=== PATIENT | female | born 1940 | race Caucasian/White ===

== ENCOUNTER 2017-11-03 12:39 | Emergency (ER) | payer MEDICARE, OTHER ==
[2017-11-03 13:30] LABS: BASOPHILS % (AUTO) 0.6 %; EOSINOPHILS % (AUTO) 0.8 %; HGB - HEMOGLOBIN 13.8 g/dL (12.0-16.0); LYMPHOCYTES # (AUTO) 1.4 10^3/uL (1.5-3.5); LYMPHOCYTES % (AUTO) 27.1 %; MEAN CORPUSCULAR HEMOGLOBIN 30.8 pg (27.0-31.0); MEAN CORPUSCULAR HGB CONC 33.5 g/dL (32.0-36.0); MEAN CORPUSCULAR VOLUME 91.7 fL (81.0-99.0); MEAN PLATELET VOLUME 8.1 fL (7.9-10.8); MONOCYTES # (AUTO) 0.5 10^3/uL (0.0-1.0); MONOCYTES % (AUTO) 8.6 %; NEUTROPHILS # (AUTO) 3.3 10^3/uL (1.5-6.6); NEUTROPHILS % (AUTO) 62.9 %; PLT - PLATELET COUNT 193 10^3/uL (130-450); RED BLOOD COUNT 4.49 10^6/uL (4.20-5.40); RED CELL DISTRIBUTION WIDTH 13.4 % (12.0-15.0); WHITE BLOOD COUNT 5.2 x10^3/uL (4.8-10.8)
[2017-11-03] MEDS ORDERED: LIDOCAINE PATCH 5% TOP PRN (13:36)
[2017-11-03 13:41] LABS: ALBUMIN 3.9 g/dL (3.2-5.5); ALBUMIN/GLOBULIN RATIO 1.1 (1.0-2.2); BILIRUBIN,TOTAL 0.4 mg/dL (0.2-1.0); CALCIUM 9.1 mg/dL (8.5-10.3); CREATININE 0.7 mg/dL (0.4-1.0); TOTAL PROTEIN 7.5 g/dL (6.7-8.2)
--- NOTE | 2017-11-03 14:08 | ED Physician Documentation ---
History of Present Illness - Stated complaint Stated Complaint: LEFT SIDE PX - Chief complaint Chief Complaint: Cardiac - Additonal information Additional information: hx from pt 77 female to ED with left sided chest pain for several weeks there all the time but improved with apap worse with moving palpating and breathing pain is left ant chest under and around L breast no new cough - has a chronic cough no soa no abd pain some RLE discomfort for a month and perhaps a little swelling no travel Review of Systems Constitutional: denies: Fever Cardiac: reports: Chest pain / pressure Respiratory: denies: Dyspnea, Cough (none new) GI: denies: Abdominal Pain, Nausea, Vomiting Musculoskeletal: reports: Extremity pain, Extremity swelling Neurologic: denies: Generalized weakness Endocrine: denies: Easy bruising / bleeding Immunocompromised: denies: Immunocompromised PD PAST MEDICAL HISTORY - Past Medical History Past Medical History: Yes HEENT: Macular degeneration Derm: Other Other Past Medical History: basal cell carcinoma on R latter day - Past Surgical History 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 - Present Medications Home Medications: Ambulatory Orders Medication Instructions Recorded Confirmed Aspirin [Adult Aspirin] 81 mg 11/03/17 Cetirizine [ZyrTEC] 10 mg 11/03/17 Lidocaine Patch 5% [Lidoderm Patch] 1 each TOP DAILY PRN #10 patch 11/03/17 Multivitamin [Multiple Vitamins] 1 11/03/17 raNITIdine [Zantac] 150 mg 11/03/17 - Allergies Allergies/Adverse Reactions: Allergies Allergy/AdvReac Type Severity Reaction Status Date / Time No Known Drug Allergies Allergy Verified 11/03/17 12:55 - Social History Does the pt smoke?: No Smoking Status: Never smoker Does the pt drink ETOH?: Yes Does the pt have substance abuse?: No - Immunizations Immunizations are current?: Yes PD ED PE NORMAL - Vitals Vital signs reviewed: Yes - Neck Neck: Supple, no meningeal sign - Cardiac Cardiac: RRR - Respiratory Respiratory: No respiratory distress, Clear bilaterally, Other (chest wall TTP, no crepitus, no shingles rash) - Abdomen Abdomen: Soft - Derm Derm: Normal color - Extremities Extremities: No edema, Other (mild R calf TTP) - Neuro Neuro: Alert and oriented X 3 - Free text exam Free text exam: L breast s mass or dc Results - Vitals Vitals: Vital Signs - 24 hr 0711/03/17 11/03/17 12:49 13:14 14:11 Temperature 36.3 C L Heart Rate 100 84 65 Respiratory 18 13 12 Rate Blood Pressure 138/75 H 136/77 H 144/67 H O2 Saturation 99 98 99 Oxygen O2 Source Room air - EKG (time done) 1256 Rate: Rate (enter#) (86) Rhythm: NSR [place]: Normal Intervals: Normal [place] Ischemia: Normal ST segments - Labs Labs: Laboratory Tests 11/03/17 11/03/17 11/03/17 13:26 13:26 13:26 WBC 5.2 RBC 4.49 Hgb 13.8 Hct 41.2 MCV 91.7 MCH 30.8 MCHC 33.5 RDW 13.4 Plt Count 193 MPV 8.1 Neut # (Auto) 3.3 Lymph # (Auto) 1.4 L [place] # (Auto) 0.5 Eos # (Auto) 0.0 Baso # (Auto) 0.0 Absolute Nucleated RBC 0.00 Nucleated RBC % 0.0 D-Dimer Sodium 133 L Potassium 3.8 Chloride 99 L Carbon Dioxide 25 Anion Gap 9.0 BUN 25 H Creatinine 0.7 Estimated GFR (MDRD) 82 L Glucose 131 H Calcium 9.1 Total Bilirubin 0.4 AST 23 ALT 19 Alkaline Phosphatase 70 Troponin I < 0.04 Total Protein 7.5 Albumin 3.9 Globulin 3.6 Albumin/Globulin Ratio 1.1 Lipase 46 11/03/17 13:30 WBC RBC Hgb Hct MCV MCH MCHC RDW Plt Count MPV Neut # (Auto) Lymph # (Auto) [place] # (Auto) Eos # (Auto) Baso # (Auto) Absolute Nucleated RBC Nucleated RBC % D-Dimer < 200.0 L Sodium Potassium Chloride Carbon Dioxide Anion Gap BUN Creatinine Estimated GFR (MDRD) Glucose Calcium Total Bilirubin AST ALT Alkaline Phosphatase Troponin I Total Protein Albumin Globulin Albumin/Globulin Ratio Lipase - Rads (name of study) doppler Radiology: See rad report (no DVT) CXR Radiology: See rad report (NACPD) PD MEDICAL DECISION MAKING - Sepsis Event Vital Signs: Vital Signs - 24 hr 11/03/17 11/03/17 11/03/17 12:49 13:14 14:11 Temperature 36.3 C L Heart Rate 100 84 65 Respiratory 18 13 12 Rate Blood Pressure 138/75 H 136/77 H 144/67 H O2 Saturation 99 98 99 Oxygen O2 Source Room air Departure - Departure Disposition: 01 Home, Self Care Clinical Impression: Chest pain Qualifiers: Chest pain type: unspecified Qualified Code(s): R07.9 - Chest pain, unspecified Instructions: ED Chest Pain Atypical Unkn Cause, ED Strain Chest Wall Follow-Up: Chapo Clements MD [Primary Care Provider] - Prescriptions: Lidocaine Patch 5% [Lidoderm Patch] 1 each TOP DAILY PRN #10 patch PRN Reason: Pain Comments: Your tests in the ER are very reassuring The EKG and blood work indicate you have not had a heart attack. The ultrasound and blood work do not show any blood clots. The xrays does not show an aneurysm or tear of your aorta nor a collapsed lung or pneumonia On breast exam I did not feel any masses (but you should still get mammograms to screen for breast cancer) There is no rash to suggest shingles and that would have become apparent over the several weeks you have had symptoms. The exam did not indicate an abdominal problems that would cause referred pain to you chest You do seem tender when I palpate the chest wall - so it is possible to pain is from the the muscles of the chest wall - maybe aggravated by lifting etc I think it is safe for you to go home Recommend tylenol and lidocaine patches as needed for the pain - and try to minimize lifting and twisting for a week. Please follow up with your PMD if not better in a week. And return to the ER if worse or new symptoms develop
--- NOTE | 2017-11-03 14:48 | Ultrasound Report ---
Procedure Date: 11/03/2017 Accession Number: [id number] / [id number] Procedure: US - Duplex Ext Veins Right CPT Code: FULL RESULT: EXAM: RIGHT LOWER EXTREMITY VENOUS ULTRASOUND EXAM DATE: 11/03/2017 02:17 PM. CLINICAL HISTORY: RLE pain and pleuritic CP. COMPARISON: None. TECHNIQUE: Real-time sonographic vascular imaging was performed by the ore crushing dust collector through the lower extremity utilizing both color-flow and Doppler spectral analysis. Multiple floor representative static images were saved for review. FINDINGS: Common Femoral Vein (CFV): Normal. CFV-GSV Junction: Normal. Profunda Femoral Vein (PFV): Normal. Femoral Vein (FV) Prox: Normal. Femoral Vein (FV) Mid: Normal. Femoral Vein (FV) Dist: Normal. Popliteal Vein: Normal. Posterior Tibial Veins: Normal. Peroneal Veins: Normal. Other: None. IMPRESSION: No evidence for deep venous thrombosis. RADIA
--- NOTE | 2017-11-03 14:57 | XRAY Report ---
Procedure Date: 11/03/2017 Accession Number: [id number] / [id number] Procedure: XR - Chest 2 View X-Ray CPT Code: 72281 FULL RESULT: EXAM: CHEST RADIOGRAPHY EXAM DATE: 11/03/2017 02:26 PM. CLINICAL HISTORY: Chest pain. COMPARISON: None available. TECHNIQUE: 2 views. FINDINGS: Lungs/Pleura: No focal opacities evident. No pleural effusion. No pneumothorax. Normal volumes. Mediastinum: Heart and mediastinal contours are unremarkable. Other: None. IMPRESSION: No acute cardiopulmonary abnormality. RADIA
[2017-11-03 15:25] VITALS: BP 138/67
== END 2017-11-03 15:25 | disposition home or self-care (01) ==
LOC: ED 12:39
DX: R07.9 Chest pain, unspecified (principal)
CPT/HCPCS: 36415; 71046; 80053; 83690; 84484; 85025; 85379; 93005; 93971; 99284; A9270

== ENCOUNTER 2020-08-22 15:11 | Outpatient (CLI) | payer MEDICARE, OTHER ==
--- NOTE | 2020-08-22 18:40 | DEXA Report ---
PROCEDURE: Dexa Spine and/or Hip INDICATIONS: OSTEOPOROSIS TECHNIQUE: Dual energy x-ray absorptiometry (DXA) was performed on a [employer]. Regions measur ed are the AP Spine, femoral neck, and if needed forearm. COMPARISON: None. FINDINGS: Lumbar Spine: Bone Mineral Density 0.96 g/cm/cm,T score -2.1, osteopenia Left Femoral Neck: Bone Mineral Density 0.697 g/cm/cm, T score -2.5, osteoporosis (T score greater or equal to -1.0: NORMAL) (T score from -1.1 to -2.4: OSTEOPENIA) (T score less than or equal to -2.5 to: OSTEOPOROSIS) Impression: Osteoporosis. Patient is at high risk for fracture. Patients with diagnosis of osteoporosis or osteopenia should have regular bone mineral density assess ment. For those eligible for Medicare, routine testing is allowed once every 2 years. Testing frequ ency can be increased for patients who have rapidly progressing disease or for those who are receivin g medical therapy to restore bone mass. Reviewed by: Jon Petty MD on 08/22/2020 5:38 PM ANUP Approved by: Jon Petty MD on 08/22/2020 5:38 PM ANUP Station ID: [id number]
== END 2020-08-22 15:12 | disposition home or self-care (01) ==
LOC: DI 15:11
PROVIDERS: ATTEND Physician Assistant Medical
DX: M81.0 Age-related osteoporosis without current pathological fracture (principal)

== ENCOUNTER 2020-11-30 08:00 | Outpatient (CLI) | payer MEDICARE, OTHER ==
[2020-11-30 17:50] LABS: BASOPHILS % (AUTO) 0.6 %; EOSINOPHILS # (AUTO) 0.1 10^3/uL (0.0-0.7); EOSINOPHILS % (AUTO) 1.9 %; HCT - HEMATOCRIT 42.1 % (37.0-47.0); HGB - HEMOGLOBIN 13.5 g/dL (12.0-16.0); LYMPHOCYTES # (AUTO) 1.8 10^3/uL (1.5-3.5); LYMPHOCYTES % (AUTO) 25.7 %; MEAN CORPUSCULAR HEMOGLOBIN 30.5 pg (27.0-31.0); MEAN CORPUSCULAR HGB CONC 32.1 g/dL (32.0-36.0); MEAN PLATELET VOLUME 10.5 fL (7.9-10.8); MONOCYTES # (AUTO) 0.6 10^3/uL (0.0-1.0); MONOCYTES % (AUTO) 8.8 %; NEUTROPHILS # (AUTO) 4.4 10^3/uL (1.5-6.6); NEUTROPHILS % (AUTO) 62.9 %; PLT - PLATELET COUNT 237 10^3/uL (130-450); RED BLOOD COUNT 4.43 10^6/uL (4.20-5.40); RED CELL DISTRIBUTION WIDTH 13.4 % (12.0-15.0)
[2020-11-30 18:23] LABS: ALBUMIN 4.1 g/dL (3.2-5.5); ALBUMIN/GLOBULIN RATIO 1.2 (1.0-2.2); BILIRUBIN,TOTAL 0.5 mg/dL (0.2-1.0); CREATININE 0.5 mg/dL (0.4-1.0); POTASSIUM 4.2 mmol/L (3.5-5.0); TOTAL PROTEIN 7.5 g/dL (6.7-8.2)
== END 2020-11-30 23:59 | disposition home or self-care (01) ==
LOC: LAB.WCP 08:00
PROVIDERS: ATTEND Physician Assistant Medical
DX: K21.9 Gastro-esophageal reflux disease without esophagitis (principal)
CPT/HCPCS: 36415; 80053; 85025

== ENCOUNTER 2020-12-07 13:37 | Outpatient (CLI) | payer MEDICARE, OTHER ==
--- NOTE | 2020-12-07 15:04 | XRAY Report ---
PROCEDURE: Wrist 4 View LT INDICATIONS: L WRIST PX TECHNIQUE: 4 views of the wrist were acquired. COMPARISON: None. FINDINGS: Bones: There is a comminuted intra-articular fracture of the distal radius with impaction and dorsal angulation. A small minimally displaced fracture of the ulnar styloid is also seen. No suspicious bon y lesions. There is stenosis opinion. Scaphoid view: Intact scaphoid. Soft tissues: No suspicious soft tissue calcifications. IMPRESSION: 1. Comminuted, impacted, and mildly angulated intra-articular fracture of the distal radius. 2. Minimally displaced ulnar styloid fracture. Reviewed by: Jayson Hernandez MD on 12/07/2020 3:02 PM PDT Approved by: Jayson Hernandez MD on 12/07/2020 3:02 PM PDT Station ID: [id number]
== END 2020-12-07 23:59 | disposition home or self-care (01) ==
LOC: DI.N 13:37
PROVIDERS: ATTEND Family Medicine
DX: S52.572A Other intraarticular fracture of lower end of left radius, initial encounter for closed fracture (principal)

== ENCOUNTER 2020-12-07 22:35 | Outpatient (CLI) | payer MEDICARE, OTHER | END 2020-12-07 22:36 | disposition critical access hospital (66) | LOC: EMS 22:35 | DX: Z04.3 Encounter for examination and observation following other accident (principal); M79.605 Pain in left leg | CPT/HCPCS: A0425; A0429 ==

== ENCOUNTER 2020-12-07 22:55 | Inpatient (IN) | payer MEDICARE, OTHER ==
--- NOTE | 2020-12-07 22:51 | ED Physician Documentation ---
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 Patient was walking outside of her house tonight when she slipped and fell; she had sudden onset left hip pain when she fell, unable to stand or try to weight-bear due to severe left hip pain with any movement .Denies head injury, denies LOC, denies other pain except left hip radiating to left knee Review of Systems Constitutional: reports: Reviewed and negative Cardiac: reports: Reviewed and negative Respiratory: reports: Reviewed and negative GI: reports: Reviewed and negative Skin: reports: Reviewed and negative Musculoskeletal: reports: Joint pain (left hip), Pain with weight bearing. denies: Neck pain, Back pain Neurologic: reports: Reviewed and negative PD PAST MEDICAL HISTORY - Past Medical History Past Medical History: No - Present Medications Home Medications: Ambulatory Orders Medication Instructions Recorded Confirmed Aspirin [Adult Aspirin] 81 mg DAILY 11/03/17 12/07/20 Cetirizine [ZyrTEC] 10 mg 11/03/17 Multivitamin [Multiple Vitamins] 1 tab DAILY 11/03/17 12/07/20 raNITIdine [Zantac] 150 mg 11/03/17 - Allergies Allergies/Adverse Reactions: Allergies Allergy/AdvReac Type Severity Reaction Status Date / Time No Known Drug Allergies Allergy Verified 12/07/20 22:59 - Living Situation Living Arrangement: reports: At home PD ED PE NORMAL - Vitals Vital signs reviewed: Yes - General General: Alert and oriented X 3, No acute distress (NAD at rest, obvious painful distress with any movement involving LLE), Well developed/nourished - HEENT HEENT: Atraumatic - Neck Neck: Supple, no meningeal sign - Cardiac Cardiac: RRR, No murmur - Respiratory Respiratory: No respiratory distress, Clear bilaterally - Abdomen Abdomen: Soft, Non tender - Derm Derm: Normal color, Warm and dry - Extremities Extremities: No edema - Neuro Neuro: Alert and oriented X 3 PD ED PE EXPANDED - Extremities Extremities: Tenderness (left hip), Limited ROM (left hip), Pedal Pulses Present Results - Vitals Vitals: Vital Signs - 24 hr 12/07/20 12/07/20 22:59 23:15 Temperature 36.5 C Heart Rate 80 78 Respiratory 16 18 Rate Blood Pressure 147/80 H 141/51 H O2 Saturation 98 97 Oxygen O2 Source Room air - Labs Labs: Laboratory Tests 12/07/20 12/07/20 12/07/20 23:09 23:09 23:53 WBC 10.9 H RBC 4.16 L Hgb 12.8 Hct 39.0 MCV 93.8 MCH 30.8 MCHC 32.8 RDW 13.5 Plt Count 198 MPV 10.1 Neut # (Auto) 8.0 H Lymph # (Auto) 1.7 [place] # (Auto) 1.0 Eos # (Auto) 0.1 Baso # (Auto) 0.1 Absolute Nucleated RBC 0.00 Nucleated RBC % 0.0 Sodium 140 Potassium 3.3 L Chloride 104 Carbon Dioxide 25 Anion Gap 11.0 BUN 22 H Creatinine 0.7 Estimated GFR (MDRD) 81 L Glucose 169 H Calcium 9.4 Nasal Adenovirus (PCR) NOT DETECTED Nasal B. parapertussis DNA (PCR) NOT DETECTED Nasal Coronavir 229E PCR NOT DETECTED Nasal Coronavir HKU1 PCR NOT DETECTED Nasal Coronavir NL63 PCR NOT DETECTED Nasal Coronavir OC43 PCR NOT DETECTED Nasal Enterovir/Rhinovir PCR NOT DETECTED Nasal Influenza B PCR NOT DETECTED Nasal Influenza A PCR NOT DETECTED Nasal Parainfluen 1 PCR NOT DETECTED Nasal Parainfluen 2 PCR NOT DETECTED Nasal Parainfluen 3 PCR NOT DETECTED Nasal Parainfluen 4 PCR NOT DETECTED Nasal RSV (PCR) NOT DETECTED Nasal B.pertussis DNA PCR NOT DETECTED Nasal C.pneumoniae (PCR) NOT DETECTED Nate Human Metapneumo PCR NOT DETECTED Nasal M.pneumoniae (PCR) NOT DETECTED Nasal SARS-CoV-2 (PCR) NOT DETECTED - Rads (name of study) left hip with AP pelvis Radiology: Prelim report reviewed, See rad report chest xray Radiology: Prelim report reviewed, See rad report PD MEDICAL DECISION MAKING - ED course Complexity details: reviewed results, re-evaluated patient, considered differential, d/w patient ED course: slip and fall with left hip femoral neck fracture on xray. D/W Dr. Vee, recommends admit to hospitalist service. D/W Dr. Otero for admission to hospitalist service. Departure - Departure Disposition: [address] [facility] DC/Xfer Clinical Impression: Hypokalemia Hip fracture Qualifiers: Encounter type: initial encounter Laterality: left Qualified Code(s): S72.002A - Fracture of unspecified part of neck of left femur, initial encounter for closed fracture Condition: Good Discharge Date/Time: 12/08/20 01:55
[2020-12-07] MEDS ORDERED: SODIUM CHLORIDE 0.9% 1,000 ML IV STA (23:02)
[2020-12-07] MEDS ORDERED: MORPHINE 2 MG/ML CARPUJECT IVP STA (23:02)
[2020-12-07 23:21] LABS: BASOPHILS # (AUTO) 0.1 10^3/uL (0.0-0.1); BASOPHILS % (AUTO) 0.5 %; EOSINOPHILS # (AUTO) 0.1 10^3/uL (0.0-0.7); HGB - HEMOGLOBIN 12.8 g/dL (12.0-16.0); LYMPHOCYTES # (AUTO) 1.7 10^3/uL (1.5-3.5); LYMPHOCYTES % (AUTO) 15.7 %; MEAN CORPUSCULAR HEMOGLOBIN 30.8 pg (27.0-31.0); MEAN CORPUSCULAR HGB CONC 32.8 g/dL (32.0-36.0); MEAN CORPUSCULAR VOLUME 93.8 fL (81.0-99.0); MEAN PLATELET VOLUME 10.1 fL (7.9-10.8); MONOCYTES % (AUTO) 8.7 %; NEUTROPHILS % (AUTO) 73.6 %; PLT - PLATELET COUNT 198 10^3/uL (130-450); RED BLOOD COUNT 4.16 10^6/uL (4.20-5.40); RED CELL DISTRIBUTION WIDTH 13.5 % (12.0-15.0); WHITE BLOOD COUNT 10.9 x10^3/uL (4.8-10.8)
[2020-12-07 23:33] LABS: CALCIUM 9.4 mg/dL (8.5-10.3); CREATININE 0.7 mg/dL (0.4-1.0); POTASSIUM 3.3 mmol/L (3.5-5.0)
[2020-12-08] MEDS ORDERED: MORPHINE 2 MG/ML CARPUJECT IVP STA (00:13)
[2020-12-08] MEDS ORDERED: ONDANSETRON 4 MG/2 ML VIAL IVP PRN ×3 (00:17→16:38)
[2020-12-08] MEDS ORDERED: ACETAMINOPHEN 325 MG TABLET PO PRN (00:17)
[2020-12-08] MEDS ORDERED: SODIUM CHLORIDE FLUSH 0.9% 10 ML SYRINGE IVP PRN ×2 (00:17→16:38)
[2020-12-08] MEDS ORDERED: ONDANSETRON ODT 4 MG TABLET TL PRN (00:17)
[2020-12-08] MEDS ORDERED: POTASSIUM CHLORIDE 20 MEQ TABLET PO STA (00:18)
--- NOTE | 2020-12-08 00:24 | HISTORY & PHYSICAL EXAMINATION ---
Chief Complaint - Chief Complaint Chief Complaint: fall with hip pain History of Present Illness - Admitted From Admitted From:: home - History Obtained From Records Reviewed: [facility] History obtained from: patient and Dr. Brennan Exam Limitations: none - History of Present Illness HPI Comment/Other: This is an independent 80-year-old female who was seen earlier today in the walk-in clinic in [place] because she fell and broke her left wrist. She tripped as she was walking over a pipe. She went home And was instructed to follow-up with orthopedics. In reviewing her medical records, she has been fa lling for several years now. The first recorded fall in the office chart was that of falling straight forward onto outstretched hands and smacking her chin on the ground in 2014. She thinks is because she cannot see well. She still stoutly maintains that her driving is just fine. She chooses not to drive at night. She was taking out the garbage. Fell again between the shed and fence and this time landed on her hip and had immediate pain. Using her right arm, and scooting along her right hip, she managed to get into the house and called EMS. She has not called her children yet or her brother to let them know she is here. She was seen in the emergency room by Dr. Brennan. There is no antecedent history of loss of consciousness, arrhythmia, chest pain, etc. Temperature was 36.5. Heart rate 80. Telemetry was sinus rhythm. Blood pressure 147/80. Respirations 16. 98% on room air. Physical exam was that of a pleasant elderly female, who unfortunately had a left hip fracture. On review of systems there is no antecedent history of A. fib, WI, valvular heart disease. She has not had any angina. She has chronic mild leg edema from varicose veins and that is unchanged. Her cardiovascular endurance has remained unchanged from a mildly sedentary lifestyle for over 2 years now. She has no major medical illnesses other than postmenopausal status, basal cell carcinoma of the face, GERD, allergic rhinitis with a history of balance problems. There has been no recent change in medications. In 2006 she had some vague chest discomfort associated with her allergies. At that time she was getting allergy injections. She had a Julien protocol stress test. Dr. Clements performed the test and she was able to achieve 7 metabolic equivalents. A normal hypertensive response. The emergency room provider, Dr. Brennan, has spoken to Dr. Vee, orthopedics. He is asked the patient to be admitted to our service and he will see the patient in the morning for surgery. History - Past Medical History Cardiovascular: reports: Hypertension (Off and on in the office. No diagnosis of hypertension.), Other (Rheumatic fever, Verrucous veins) Respiratory: reports: None Neuro: reports: Other (Balance issues, getting worse. 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 Cataracts bilateral. 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 Mom at the age of 100, old age. Had history of melanoma. Brothers and 1 sister. Of her 2 brothers 1 has heart disease, but cannot recall what it is. 1 recently went through abrupt steroid withdrawal. Her sister has osteoporosis. She has 2 daughters. Both are considered healthy. No high blood pressure, cancer, diabetes, thyroid disease. Living arrangement: At home Living Situation: Alone Social History Notes: Never smoked. Rarely drinks. Recreational substance abuse. [place]. Left to go to school and got when she was in college. after 3 years. 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 Got a second time and had 2 daughters. 2 stepsons with that marriage. him. 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 Remarried a third time and obtained a third stepson. He was her high school sweetheart. That the only reason she got again. He 3 years ago after a long illness. - Substance History Use: Uses substance without health or social issues: NONE Abuse: Recurrent use of substance despite neg consequences: NONE Dependence: Experiences withdrawal or developed tolerances: NONE - POLST Patient has POLST: No POLST Status: Full Code Meds/Allgy - Home Medications Home Medications: Ambulatory Orders Medication Instructions Recorded Confirmed Aspirin [Adult Aspirin] 81 mg DAILY 11/03/17 12/07/20 Cetirizine [ZyrTEC] 10 mg 11/03/17 Multivitamin [Multiple Vitamins] 1 tab DAILY 11/03/17 12/07/20 raNITIdine [Zantac] 150 mg 11/03/17 - Allergies Allergies/Adverse Reactions: Allergies Allergy/AdvReac Type Severity Reaction Status Date / Time No Known Drug Allergies Allergy Verified 12/07/20 22:59 Review of Systems - Constitutional Constitutional: reports: Other (In July 2019 she was very sick for quite some time. She had just come back from [place] from a dog show. She thinks she may have had Covid back then.). denies: Fatigue, Fever, Chills, Malaise, Weakness, Poor appetite, Diaphoresis - Eyes Eyes: reports: Blurred vision, Field loss, Vision loss, Corrective lenses, Other (She says that the corrective lenses have helped a lot. She thinks she can still drive in spite of the macular degeneration and glaucoma and cataracts.) - Ears, Nose & Throat Ears, Nose & Throat: reports: Nasal congestion, Postnasal drainage, Hoarseness, Other (All from allergic rhinitis.) - Cardiovascular Cariovascular: reports: Edema (Mild, chronic, legs from varicose veins). denies: Irregular heart rate, Palpitations, Chest pain, Lightheadedness, Syncope, Exertional dyspnea, Decr. exercise tolerance - Respiratory Respiratory: reports: Cough (From allergic rhinitis. This last week was bad because she was working in her garden.). denies: Sputum production, Wheezing, Snoring, Hemoptysis, Orthopnea, SOB at rest, SOB with exertion - Gastrointestinal Gastrointestinal: reports: Reflux/heartburn (Over the years getting worse.), Other (She really does not ever want to do a colonoscopy. She has reluctantly agreed to a Cologuard test that was mailed out to her in October. She has not gotten around to doing it. If the Cologuard test is positive she is willing to do a colonoscopy. If the Cologuard test is negative she wont). denies: Abdominal pain, Abdominal distention, Constipation, Diarrhea, Change in bowel habits, Rectal bleeding, Black stools, Bloody stools, Nausea, Vomiting, Coffee grounds emesis, Bloating, Poor appetite - Genitourinary Genitourinary: reports: Frequency, Nocturia. denies: Dysuria, Urgency, Hematuria, Incontinence, Flank pain, Sexual dysfunction - Musculoskeletal Musculoskeletal: reports: Stiffness, Joint pain, Other (She has a lot of stiffness. But right now the main component is agonizing left hip pain when she tries to move.) - Integumentary Integumentary: reports: Rash (A few years ago due to a new cream. That is resolved.), Lesions (To basal cell cancer of her face and head). denies: Pruritis, Dryness, Lumps, Acne, Pigment changes - Neurological Neurological: reports: Memory problems (Mild. Mainly with names.). denies: General weakness, Focal weakness, Headache, Dizziness, Pre-existing deficit, Abnormal gait, Seizures, Incoordination - Psychiatric Psychiatric: denies: Depression, Anxiety, Suicidal, Delusions, Hallucinations - Endocrine Endocrine: denies: Polyuria, Polydypsia, Polyphagia, Intolerance to cold - Hematologic/Lymphatic Hematologic/Lymphatic: denies: Anemia, Bruising, Petechiae, Blood clots Prior Level of Functionality: Independent female. Lives in her own home. Drives. Is able to complete her activities of daily living with regards to self hygiene. Cooks, gardens, cleans house.. Does not use any durable medical equipment. She has 1 daughter in [place], the other daughter around [place] Exam - Vital Signs Reviewed Vital Signs: Yes Vital Signs: Vital Signs x48h Temp Pulse Resp BP Pulse Ox 12/07/20 23:15 78 18 141/51 H 97 12/07/20 22:59 36.5 C 80 16 147/80 H 98 - Physical Exam General Appearance: positive: Alert, Moderate distress (if she moves left hip), Other (5 feet 6 inches female who weighs 65.8 kg. Oriented, normal speech pattern, lucid historian). negative: Lethargic Eyes Bilateral: positive: PERRL, EOMI ENT: positive: Pharynx nml, No signs of dehydration Neck: positive: No JVD Respiratory: positive: No respiratory distress. negative: Wheezes, Rales, Rhonchi Cardiovascular: positive: Regular rate & rhythm, Systolic murmur. negative: Gallop/S4, Friction rub Peripheral Pulses: positive: 1+ Abdomen: positive: Non-tender, No organomegaly, Nml bowel sounds, No distention Back: negative: CVA tenderness (R), CVA tenderness (L) Skin: positive: Warm, Dry Extremities: positive: Full ROM (Except for that left hip. And left wrist.), Pedal edema (Mild around ankles. Varicose veins present.) Neurologic/Psychiatric: positive: Oriented x3, CN's nml (2-12), Motor nml, Sensation nml Conclusion/Plan - Problem List (1) Hip fracture Conclusion/Plan: Due to mechanical fall. Unfortunate is female has a history of falls because of balance issues. She was to do physical therapy to help her with her balance. Unclear what the mechanism of her ataxia is. Nevertheless she has had 2 falls today, 1 resulting in a hip fracture, the other resulting in a wrist fracture. Plan: Inpatient status Consult with orthopedics N.p.o. after 40 mEq of potassium DVT prophylaxis w lovenox to start tomorrow after surgery Qualifiers: Encounter type: initial encounter Fracture type: closed Laterality: left Qualified Code(s): S72.002A - Fracture of unspecified part of neck of left femur, initial encounter for closed fracture (2) Left wrist fracture Conclusion/Plan: She was to follow-up in the outpatient setting with orthopedics. Hopefully he will address the issue while she is here for this hip fracture. In the meantime she is still in a wrist splint. Qualifiers: Encounter type: initial encounter Fracture type: closed Qualified Code(s): S62.102A - Fracture of unspecified carpal bone, left wrist, initial encounter for closed fracture (3) Hypokalemia Conclusion/Plan: supplement tonight w 40 meq and recheck in am (4) Encounter for preoperative assessment Conclusion/Plan: [facility] surgical risk calculator has her at below average risk for serious complication, complications, pneumonia, cardiac complication due to her history. Antecedent review of systems is negative for anything that would contraindicat e her going to surgery tomorrow. Anticipation is that she would be discharged to a prison facility for rehab. However we would assess that with physical therapy. Considering her independent status, relative health, she may be able to go home. Revised cardiac index is calculated at 0 points, class I risk. 3.9% 30-day risk of , WI, or cardiac arrest. (5) Osteoporosis Conclusion/Plan: She has been offered Fosamax and Actonel in the past 10 years. Each time she has not filled her prescription or taken the medication. She does, however, take calcium and vitamin D. Plan: We discussed the use of etidronates and she is willing to do Zometa after this. I think this would be best since it is a one time dose a year AND it would avoid worsening her hx of GERD. Verified use of calcium and vitamin D Qualifiers: Osteoporosis type: age-related Presence of current pathological fracture: with current pathological fracture Encounter type: initial encounter Qualified Code(s): M80.00XA - Age-related osteoporosis with current pathological fracture, unspecified site, initial encounter for fracture (6) Frequent falls Conclusion/Plan: Would suggest outpatient neurological evaluation for her ataxia. she has macular degeneration, cataracts, and glaucoma, and the falls may be a result of visual impairment. - Lab Results Lab results reviewed: Yes Fish Bones: 12/07/20 23:09 12/07/20 23:09 - Diagnostic Imaging Results Diagnostic Imaging Results: positive: Other (No report in EMR. Dr. Brennan has interpreted the films as the left hip fracture and discussed the case with Dr. Vee) - EKG Results EKG Interpreted Independently: No Core Measures - Anticipated LOS I expect patient to be DC'd or transferred within 96 hours.: Yes - DVT/VTE - Prophylaxis VTE/DVT Device ordered at admit?: Yes
[2020-12-08 01:04] LABS: CORONAVIRUS 229E-RESP PCR NOT DETECTED; CORONAVIRUS HKU1-RESP PCR NOT DETECTED; CORONAVIRUS NL63-RESP PCR NOT DETECTED; CORONAVIRUS OC43-RESP PCR NOT DETECTED; HUMAN METAPNEUMOVIRUS NOT DETECTED; INFLUENZA A- RESP PCR PANEL NOT DETECTED; INFLUENZA B - RESP PCR PANEL NOT DETECTED; PARAINFLUENZA VIRUS 1 NOT DETECTED; PARAINFLUENZA VIRUS 2 NOT DETECTED; PARAINFLUENZA VIRUS 3 NOT DETECTED; RHINOVIRUS/ENTEROVIRUS NOT DETECTED; SARS-CoV-2 -RESP PCR PANEL NOT DETECTED
[2020-12-08 01:05] LABS: B. PARAPERTUSSIS- RESP PCR PAN NOT DETECTED; B. PERTUSSIS- RESP PCR PANEL NOT DETECTED; C. PNEUMONIAE- RESP PCR PANEL NOT DETECTED; M. PNEUMONIAE- RESP PCR PANEL NOT DETECTED; PARAINFLUENZA VIRUS 4 NOT DETECTED; RSV- RESP PCR PANEL NOT DETECTED
[2020-12-08] MEDS: SODIUM CHLORIDE FLUSH 0.9% 10 ML SYRINGE IVP SCH ×3 (02:06→18:01)
--- NOTE | 2020-12-08 02:11 | ADVANCE CARE PLANNING NOTE ---
Advance Care Planning - Planning Encounter Date: 12/08/20 Time: 01:00 Purpose: establish code status Parties in Attendance: hospitalist and patient Decisional Capacity of the Patient: intact. She is alert, oriented, lucid and endorses living alone and still driving, paying bills, and makes her own decisions. - Diagnosis for Encounter (1) Hip fracture Qualifiers: Encounter type: initial encounter Laterality: left Qualified Code(s): S72.002A - Fracture of unspecified part of neck of left femur, initial encounter for closed fracture Summary: History of fall since 2014. She thinks is because of her vision. She is just not paying attention to where her feet are and depth perception is affected. She also gets very focused on activities at hand and does not pay attention to what she is doing. She denies dizziness, loss of consciousness. This is resulted in a hip fracture today. - Encounter Subjective/Patient's Story: [place] Has had 3 marriages. Her last marriage ended 3 years ago when her high school sweetheart of a long illness. She took care of him for many years before he . She regards her self is healthy, independent. Still drives a car, pays her own bills. Does not use any durable medical equipment. She started falling a few years ago. She thinks that it is because she is just not paying attention to where she puts her feet, and her vision is impaired. She denies severe memory loss, gait ataxia, loss of consciousness. She denies any history of arrhythmias. [place] And she loves living in her own home. She would like to live in her own home for as long as possible. She recognizes that as she gets older she may need more help. 1 daughter lives in [place] and 1 daughter lives in [place]. Both daughters of stated that they will take her in and have her live with them. Her plan is to sell her home, and use a usp fund plus the sale of the home finds to then help pay for her care in her daughter's home. She does not have any specific goals with regards to living a certain amount of time. Because both parents were very elderly when she she assumes she will be elderly as well. Since this is her first episode of severe illness resulting in hospitalization, she would like to be a full code. Objective/Medical Story: This is an independent 80-year-old female who was seen earlier today in the walk-in clinic in [place] because she fell and broke her left wrist. She tripped as she was walking over a pipe. She went home And was instructed to follow-up with orthopedics. In reviewing her medical records, she has been falling for several years now. The first recorded fall in the office chart was that of falling straight forward onto outstretched hands and smacking her chin on the ground in 2014. She thinks is because she cannot see well. She still stoutly maintains that her driving is just fine. She chooses not to drive at night. She was taking out the garbage. Fell again between the shed and fence and this time landed on her hip and had immediate pain. Using her right arm, and scooting along her right hip, she managed to get into the house and called EMS. She has not called her children yet or her brother to let them know she is here. She was seen in the emergency room by Dr. Brennan. There is no antecedent history of loss of consciousness, arrhythmia, chest pain, etc. Temperature was 36.5. Heart rate 80. Telemetry was sinus rhythm. Blood pressure 147/80. Respirations 16. 98% on room air. Physical exam was that of a pleasant elderly female, who unfortunately had a left hip fracture. On review of systems there is no antecedent history of A. fib, DE, valvular heart disease. She has not had any angina. She has chronic mild leg edema from varicose veins and that is unchanged. Her cardiovascular endurance has remained unchanged from a mildly sedentary lifestyle for over 2 years now. She has no major medical illnesses other than postmenopausal status, basal cell carcinoma of the face, GERD, allergic rhinitis with a history of balance problems. There has been no recent change in medications. In 2006 she had some vague chest discomfort associated with her allergies. At that time she was getting allergy injections. She had a Julien protocol stress test. Dr. Clements performed the test and she was able to achieve 7 metabolic equivalents. A normal hypertensive response. The emergency room provider, Dr. Brennan, has spoken to Dr. Vee, orthopedics. He is asked the patient to be admitted to our service and he will see the patient in the morning for surgery. - Past Medical History Cardiovascular: reports: Hypertension (Off and on in the office. No diagnosis of hypertension.), Other (Rheumatic fever, Verrucous veins) Respiratory: reports: None Neuro: reports: Other (Balance issues, getting worse. 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 Cataracts bilateral. 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 Revised cardiac index has or is class I. Plan is for her to undergo surgery tomorrow morning with discharge on postoperative day #3. Goals of Care: 1. To successfully navigate this acute episode of care with hip surgery. Her hope is to return to her home with physical therapy as opposed to custodial facility. However, if she has to go to a custodial facility she is choosing [facility]. 2. To treat her osteoporosis in the outpatient setting to hopefully reduce her risk of fracture. She will discuss this with her primary care provider. 3. To remain in her own home for as long as possible until she can no longer take care of her self. 4. She plans on doing her Cologuard testing when she is done with the hip surgery. And that will determine her future with regards to colonoscopy Plan: She has identified, one of her daughters, as her delicate and/power of trademark attorney her number is [phone]. We have called Maria Luz and left a voicemail to let her know that mom is in the hospital. We will await decision of physical therapy and orthopedic surgery on postop day 3 to let us make a decision about discharge to home or [facility]. Code Status: Attempt Resuscitation Time spent on advance care plannin minutes
[2020-12-08] MEDS: oxyCODONE 5 MG TABLET PO PRN (02:12)
[2020-12-08] MEDS: MORPHINE 2 MG/ML CARPUJECT IVP PRN ×3 (03:00→08:38)
[2020-12-08 05:25] LABS: BASOPHILS % (AUTO) 0.3 %; EOSINOPHILS % (AUTO) 0.1 %; HCT - HEMATOCRIT 38.5 % (37.0-47.0); HGB - HEMOGLOBIN 12.6 g/dL (12.0-16.0); LYMPHOCYTES % (AUTO) 7.1 %; MEAN CORPUSCULAR HEMOGLOBIN 30.6 pg (27.0-31.0); MEAN CORPUSCULAR HGB CONC 32.7 g/dL (32.0-36.0); MEAN CORPUSCULAR VOLUME 93.4 fL (81.0-99.0); MEAN PLATELET VOLUME 9.9 fL (7.9-10.8); MONOCYTES # (AUTO) 1.1 10^3/uL (0.0-1.0); NEUTROPHILS # (AUTO) 11.5 10^3/uL (1.5-6.6); NEUTROPHILS % (AUTO) 84.2 %; PLT - PLATELET COUNT 180 10^3/uL (130-450); RED BLOOD COUNT 4.12 10^6/uL (4.20-5.40); RED CELL DISTRIBUTION WIDTH 13.4 % (12.0-15.0); WHITE BLOOD COUNT 13.6 x10^3/uL (4.8-10.8)
[2020-12-08 05:34] LABS: CALCIUM 8.9 mg/dL (8.5-10.3); CREATININE 0.6 mg/dL (0.4-1.0); POTASSIUM 4.1 mmol/L (3.5-5.0)
--- NOTE | 2020-12-08 08:15 | XRAY Report ---
PROCEDURE: Hip w/Pelvis 2-3V LT INDICATIONS: Trauma, fall, left hip pain TECHNIQUE: AP pelvis with lateral view(s) of the bilateral hip(s). COMPARISON: None. FINDINGS: There is a displaced and angulated fracture of the left femoral neck. Remaining pelvic osseous struct ures appear intact. IMPRESSION: Displaced and angulated fracture of the left femoral neck. Reviewed by: Butch Reddy MD on 12/08/2020 8:14 AM PDT Approved by: Butch Reddy MD on 12/08/2020 8:14 AM PDT Station ID: [id number]
--- NOTE | 2020-12-08 08:16 | XRAY Report ---
PROCEDURE: Chest 1 View X-Ray INDICATIONS: Hip fracture TECHNIQUE: One view of the chest was acquired. COMPARISON: 11/03/2017 chest radiographs FINDINGS: Surgical changes and devices: None. Lungs and pleura: No pleural effusions or pneumothorax. Lungs are clear. Mediastinum: Mediastinal contours appear normal. Heart size is normal. Bones and chest wall: No suspicious bony lesions. Overlying soft tissues appear unremarkable. IMPRESSION: No acute cardiopulmonary process demonstrated radiographically. Reviewed by: Butch Reddy MD on 12/08/2020 8:14 AM PDT Approved by: Butch Reddy MD on 12/08/2020 8:14 AM PDT Station ID: [id number]
--- NOTE | 2020-12-08 09:00 | PHARMACY PROGRESS NOTE ---
- Best Possible Medication History Admit Date and Time: 12/08/20 0017 Processed by: Nursing Medication History completed: Yes Patient Interview: Completed (MED REC COMPLETED BY NURSING) As the person ultimately responsible for medication therapy, providers are able to order a medication from an existing home medication list in [facility] via the "Reconcile Routine" prior to Confirmation of that medication by coding support specialist. Such practice is discouraged except when the physician, in their clinical judgment, deems that a medical need exists for a medication without regard to previous use.
[2020-12-08] MEDS ORDERED: ROPIVACAINE 0.5% PF 20 ML AMPULE ONE ×2 (10:02→16:06)
[2020-12-08] MEDS ORDERED: DEXAMETHASONE 10 MG/ML VIAL ONE (10:04)
--- NOTE | 2020-12-08 10:11 | CT Report ---
PROCEDURE: LOWER EXTREMITY WO - LT INDICATIONS: hip fracture, left hip TECHNIQUE: Noncontrast 3 mm axial sections acquired of the pelvis, with coronal and sagittal reformats. COMPARISON: Plain films dated 12/07/2020 FINDINGS: Image quality: Excellent. Bones: As seen by plain film, there is a moderately displaced subcapital left femoral neck fracture which demonstrates moderate angulation and impaction. Soft tissues: Grossly unremarkable. Kelley catheter is present. IMPRESSION: No significant change in left subcapital femoral neck fracture compared to plain films dated 12/07/2020 . Reviewed by: Jovon Judd MD on 12/08/2020 10:10 AM PDT Approved by: Jovon Judd MD on 12/08/2020 10:10 AM PDT Station ID: [id number]
--- NOTE | 2020-12-08 11:28 | ANESTHESIA ---
Pre-Anesthesia VS, & Labs - Diagnosis Left hip fracture and left wrist fracture - Procedure Left hip hemiarthroplasty and Left wrist fracture pinning Vital Signs: Temp Pulse Resp BP Pulse Ox 98.7 C H 90 18 141/81 H 94 12/08/20 08:30 12/08/20 08:30 12/08/20 08:30 12/08/20 08:30 12/08/20 08:30 Height: 5 ft 5 in Weight (kg): 63.5 kg Body Mass Index: 23.3 BMI Classification: Healthy weight - NPO >8 hours - Is Patient ?: No - Lab Results Current Lab Results: Laboratory Tests 12/08/20 05:18: Sodium 137, Potassium 4.1, Chloride 104, Carbon Dioxide 24, Anion Gap 9.0, BUN 18, Creatinine 0.6, Estimated GFR (MDRD) 97, Glucose 139 H, Calcium 8.9 12/08/20 05:18: WBC 13.6 H, RBC 4.12 L, Hgb 12.6, Hct 38.5, MCV 93.4, MCH 30.6, MCHC 32.7, RDW 13.4, Plt Count 180, MPV 9.9, Neut # (Auto) 11.5 H, Lymph # (Auto) 1.0 L, [place] # (Auto) 1.1 H, Eos # (Auto) 0.0, Baso # (Auto) 0.0, Absolute Nucleated RBC 0.00, Nucleated RBC % 0.0 12/07/20 23:09: Sodium 140, Potassium 3.3 L, Chloride 104, Carbon Dioxide 25, Anion Gap 11.0, BUN 22 H, Creatinine 0.7, Estimated GFR (MDRD) 81 L, Glucose 169 H, Calcium 9.4 12/07/20 23:09: WBC 10.9 H, RBC 4.16 L, Hgb 12.8, Hct 39.0, MCV 93.8, MCH 30.8, MCHC 32.8, RDW 13.5, Plt Count 198, MPV 10.1, Neut # (Auto) 8.0 H, Lymph # (Auto) 1.7, Ceiba # (Auto) 1.0, Eos # (Auto) 0.1, Baso # (Auto) 0.1, Absolute Nucleated RBC 0.00, Nucleated RBC % 0.0 Lab results reviewed: Yes Fish Bones: 12/08/20 05:18 12/08/20 05:18 Home Medications and Allergies Active Medications Acetaminophen (Acetaminophen 325 Mg Tablet) 650 mg PO Q4HR PRN PRN Reason: Pain 1 to 4 Last Admin: 12/08/20 02:12 Dose: 650 mg Documented by: Enoxaparin Sodium (Enoxaparin 40 Mg/0.4 Ml Syringe) 40 mg SUBQ DAILY [facility] Morphine Sulfate (Morphine 2 Mg/Ml Carpuject) 2 mg IVP Q2HR PRN PRN Reason: PAIN Last Admin: 12/08/20 08:38 Dose: 2 mg Documented by: Ondansetron HCl (Ondansetron Odt 4 Mg Tablet) 4 mg TL Q6HR PRN PRN Reason: Nausea / Vomiting Ondansetron HCl (Ondansetron 4 Mg/2 Ml Vial) 4 mg IVP Q6HR PRN PRN Reason: Nausea / Vomiting Oxycodone HCl (Oxycodone 5 Mg Tablet) 5 mg PO Q4HR PRN PRN Reason: Pain 5 to 7 Last Admin: 12/08/20 02:12 Dose: 5 mg Documented by: Sodium Chloride (Sodium Chloride Flush 0.9% 10 Ml Syringe) 10 ml IVP PRN PRN PRN Reason: NEEDED PER PROVIDER ORDERS Sodium Chloride (Sodium Chloride Flush 0.9% 10 Ml Syringe) 10 ml IVP 0100,0900,1700 [facility] Last Admin: 12/08/20 08:38 Dose: 10 ml Documented by: Aspirin [Adult Aspirin] 81 mg DAILY 11/03/17 Multivitamin [Multiple Vitamins] 1 tab DAILY 11/03/17 Allergies/Adverse Reactions: Allergies Allergy/AdvReac Type Severity Reaction Status Date / Time No Known Drug Allergies Allergy Verified 12/07/20 22:59 Anes History & Medical History - Anesthetic History Anesthesia Complications: reports: No previous complications - Medical History Cardiovascular: reports: Hypertension, Other Pulmonary: reports: None Gastrointestinal: reports: GERD Urinary: reports: None Neuro: reports: Other Musculoskeletal: reports: Osteoarthritis, Osteoporosis, Other Endocrine/Autoimmune: reports: None Skin: reports: Other Smoking Status: Never smoker Psychosocial: reports: No issues indicated History of Cancer?: Yes - Surgical History General: reports: Appendectomy Gynecologic: reports: Hysterectomy, Oophrectomy Dermatologic: reports: Skin cancer surgery Exam General: Alert, Oriented x3, Cooperative, No acute distress Dental: WNL Mouth Openin Fingerbreadth Neck Mobility: Normal Mallampati classification: II Thyromental Distance: 4-6 cm Respiratory: Lungs clear, Normal breath sounds, No respiratory distress, No accessory muscle use Cardiovascular: Regular rate, Normal S1, Normal S2, No murmurs Mental/Cognitive Status: Alert/Oriented X3, Normal for patient Plan Anesthesia Type: Spinal, Supraclavicular Block (left), Fascia Iliaca Block (left) Regional Block: Per Surgeon's request for Post Op pain control Consent for Procedure(s) Verified and Reviewed: Yes Code Status: Attempt Resuscitation ASA classification: 2-Mild systemic disease Is this case an emergency?: No
--- NOTE | 2020-12-08 12:21 | HISTORY & PHYSICAL EXAMINATION ---
HPI - History Obtained From History obtained from: Patient Exam limitations: Clinical condition - History of Present Illness HPI Comment/Other: This is a relatively healthy 80-year-old woman with a history of falls. She sustained 2 falls yesterday 1 in the morning and 1 in the evening. She sustained a left wrist fracture earlier in the day and a left hip fracture in the evening. Both falls were associated with a trip outdoors. These falls were from a standing position. She had pain and inability to bear weight on left leg. Pain is about the left hip and upper thigh. She also has localized pain to left wrist without neurologic symptoms. She denies previous problems with left hip or left wrist. She does have some difficulty with eyesight. She denies chest pain, shortness of breath, dizziness or loss of consciousness associated with falls. She was seen in the emergency room and admitted to the hospital service for comanage care, medical and orthopedic. She seems to be doing relatively well at the present time. Her left wrist has been immobilized in a long-arm splint PMH/PSH - Past Medical History Cardiovascular: positive: Hypertension, Other Respiratory: positive: None Neuro: positive: Other Endocrine/Autoimmune: positive: None GI: positive: GERD ADHESIVE PRIMER: positive: Other () : positive: None HEENT: positive: Glaucoma, Macular degeneration, Other (chronic allergic rhinitis, Epiretinal membrane right eye. Cataracts bilateral. ) Psych: positive: None Musculoskeletal: positive: Osteoarthritis, Osteoporosis, Other Derm: positive: Other MRSA Hx?: No - Past Surgical History General: positive: Appendectomy /ADHESIVE PRIMER: positive: Hysterectomy, Oophrectomy Derm: positive: Skin cancer surgery Social & Family Hx - Social History Does the pt smoke?: No Smoking Status: Never smoker Does the pt drink ETOH?: Yes Does the pt have substance abuse?: No - POLST Patient has POLST: No POLST Status: Full Code Meds/Allgy - Home Medications Home Medications: Ambulatory Orders Medication Instructions Recorded Confirmed Aspirin [Adult Aspirin] 81 mg DAILY 11/03/17 12/07/20 Multivitamin [Multiple Vitamins] 1 tab DAILY 11/03/17 12/07/20 - Allergies Allergies/Adverse Reactions: Allergies Allergy/AdvReac Type Severity Reaction Status Date / Time No Known Drug Allergies Allergy Verified 12/07/20 22:59 Exam - Vital Signs Vital Signs: Vital Signs x48h Temp Pulse Resp BP Pulse Ox 12/08/20 08:30 98.7 C H 90 18 141/81 H 94 - Physical Exam General Appearance: positive: No acute distress Neck: positive: Nml inspection Respiratory: positive: Chest non-tender, No respiratory distress Cardiovascular: positive: Regular rate & rhythm Peripheral Pulses: positive: 2+ Abdomen: positive: Non-tender Skin: positive: Color nml, Warm, Dry Neurologic/Psychiatric: negative: Oriented x3 (Left leg is shortened and externally rotated, pain with passive motion left hip. Left knee is nontender, no swelling about left knee. There is no sign of hematoma about left hip. Skin is intact. She has tenderness to the left distal radius and ulna with swelling. Color, motion sensation intac) Results - Lab Results Fish Bones: 12/08/20 05:18 12/08/20 05:18 Other Lab Results: Lab Results x24hrs 12/08/20 12/08/20 12/07/20 Range/Units 05:18 05:18 23:53 WBC 13.6 H (4.8-10.8) x10^3/uL RBC 4.12 L (4.20-5.40) 10^6/uL Hgb 12.6 (12.0-16.0) g/dL Hct 38.5 (37.0-47.0) % MCV 93.4 (81.0-99.0) fL MCH 30.6 (27.0-31.0) pg MCHC 32.7 (32.0-36.0) g/dL RDW 13.4 (12.0-15.0) % Plt Count 180 (130-450) 10^3/uL MPV 9.9 (7.9-10.8) fL Neut # (Auto) 11.5 H (1.5-6.6) 10^3/uL Lymph # (Auto) 1.0 L (1.5-3.5) 10^3/uL [place] # (Auto) 1.1 H (0.0-1.0) 10^3/uL Eos # (Auto) 0.0 (0.0-0.7) 10^3/uL Baso # (Auto) 0.0 (0.0-0.1) 10^3/uL Absolute Nucleated RBC 0.00 x10^3/uL Nucleated RBC % 0.0 /100WBC Sodium 137 (135-145) mmol/L Potassium 4.1 (3.5-5.0) mmol/L Chloride 104 (101-111) mmol/L Carbon Dioxide 24 (21-32) mmol/L Anion Gap 9.0 (6-13) BUN 18 (6-20) mg/dL Creatinine 0.6 (0.4-1.0) mg/dL Estimated GFR (MDRD) 97 (>89) Glucose 139 H (70-100) mg/dL Calcium 8.9 (8.5-10.3) mg/dL Nasal Adenovirus (PCR) NOT DETECTED Nasal B. parapertussis DNA (PCR) NOT DETECTED Nasal Coronavir 229E PCR NOT DETECTED Nasal Coronavir HKU1 PCR NOT DETECTED Nasal Coronavir NL63 PCR NOT DETECTED Nasal Coronavir OC43 PCR NOT DETECTED Nasal Enterovir/Rhinovir PCR NOT DETECTED Nasal Influenza B PCR NOT DETECTED Nasal Influenza A PCR NOT DETECTED Nasal Parainfluen 1 PCR NOT DETECTED Nasal Parainfluen 2 PCR NOT DETECTED Nasal Parainfluen 3 PCR NOT DETECTED Nasal Parainfluen 4 PCR NOT DETECTED Nasal RSV (PCR) NOT DETECTED Nasal B.pertussis DNA PCR NOT DETECTED Nasal C.pneumoniae (PCR) NOT DETECTED Nate Human Metapneumo PCR NOT DETECTED Nasal M.pneumoniae (PCR) NOT DETECTED Nasal SARS-CoV-2 (PCR) NOT DETECTED 12/07/20 12/07/20 Range/Units 23:09 23:09 WBC 10.9 H (4.8-10.8) x10^3/uL RBC 4.16 L (4.20-5.40) 10^6/uL Hgb 12.8 (12.0-16.0) g/dL Hct 39.0 (37.0-47.0) % MCV 93.8 (81.0-99.0) fL MCH 30.8 (27.0-31.0) pg MCHC 32.8 (32.0-36.0) g/dL RDW 13.5 (12.0-15.0) % Plt Count 198 (130-450) 10^3/uL MPV 10.1 (7.9-10.8) fL Neut # (Auto) 8.0 H (1.5-6.6) 10^3/uL Lymph # (Auto) 1.7 (1.5-3.5) 10^3/uL [place] # (Auto) 1.0 (0.0-1.0) 10^3/uL Eos # (Auto) 0.1 (0.0-0.7) 10^3/uL Baso # (Auto) 0.1 (0.0-0.1) 10^3/uL Absolute Nucleated RBC 0.00 x10^3/uL Nucleated RBC % 0.0 /100WBC Sodium 140 (135-145) mmol/L Potassium 3.3 L (3.5-5.0) mmol/L Chloride 104 (101-111) mmol/L Carbon Dioxide 25 (21-32) mmol/L Anion Gap 11.0 (6-13) BUN 22 H (6-20) mg/dL Creatinine 0.7 (0.4-1.0) mg/dL Estimated GFR (MDRD) 81 L (>89) Glucose 169 H (70-100) mg/dL Calcium 9.4 (8.5-10.3) mg/dL Nasal Adenovirus (PCR) Nasal B. parapertussis DNA (PCR) Nasal Coronavir 229E PCR Nasal Coronavir HKU1 PCR Nasal Coronavir NL63 PCR Nasal Coronavir OC43 PCR Nasal Enterovir/Rhinovir PCR Nasal Influenza B PCR Nasal Influenza A PCR Nasal Parainfluen 1 PCR Nasal Parainfluen 2 PCR Nasal Parainfluen 3 PCR Nasal Parainfluen 4 PCR Nasal RSV (PCR) Nasal B.pertussis DNA PCR Nasal C.pneumoniae (PCR) Nate Human Metapneumo PCR Nasal M.pneumoniae (PCR) Nasal SARS-CoV-2 (PCR) - Diagnostic Imaging Results Diagnostic Imaging Results: negative: Read independently (X-rays with displaced fracture left distal radius, comminuted; displaced femoral neck fracture left hip seen on routine x-rays and better documented on CT scan) Impression/Plan - Problem List Problem List: 1 displaced femoral neck fracture left hip Plan is a left hip hemiarthroplasty. I discussed the risk, goals and likelihood achieving goals, alternatives to surgery, disability and rarely . She seems to have understanding the procedure. I have encouraged questions. 2. Displaced fracture left distal radius and ulnar styloid Plan closed reduction percutaneous pinning left distal radius. Discussed the risks, goals and likelihood achieving goals, alternatives to surgery, disability and rarely . Both procedures can be done under the sa me anesthetic setting. Patient is agreement to both procedures has signed informed consent. She has had preoperative medical evaluations, no contraindication to surgery.
[2020-12-08] MEDS ORDERED: PROPOFOL 200 MG/20 ML VIAL IVP ONE ×2 (12:22→16:01)
[2020-12-08] MEDS ORDERED: KETAMINE 500 MG/10 ML VIAL ONE (12:23)
[2020-12-08] MEDS ORDERED: fentaNYL 100 MCG/2 ML VIAL ONE (12:23)
[2020-12-08] MEDS ORDERED: SODIUM CHLORIDE 0.9% 10 ML VIAL IVP ONE (12:26)
[2020-12-08] MEDS ORDERED: ENOXAPARIN 40 MG/0.4 ML SYRINGE SUBQ SCH (14:00)
[2020-12-08] MEDS ORDERED: MORPHINE 2 MG/ML CARPUJECT IVP PRN (14:21)
[2020-12-08] MEDS ORDERED: NALOXONE 0.4 MG/ML VIAL IVP PRN (14:21)
[2020-12-08] MEDS ORDERED: HYDROmorphone 0.5 MG/0.5 ML SYRINGE IVP PRN (14:21)
[2020-12-08] MEDS ORDERED: fentaNYL 100 MCG/2 ML VIAL IVP PRN (14:21)
[2020-12-08] MEDS ORDERED: ATROPINE ABBOJECT 1 MG/10 ML SYRINGE IVP PRN (14:21)
[2020-12-08] MEDS ORDERED: ceFAZolin 1 GM VIAL ONE (14:27)
[2020-12-08] MEDS ORDERED: TRANEXAMIC ACID 1,000 MG/10 ML VIAL ONE (14:43)
[2020-12-08] MEDS ORDERED: LACTATED RINGERS 1,000 ML IV SCH (15:00)
[2020-12-08] MEDS ORDERED: ACETAMINOPHEN 1,000 MG/100 ML 100 ML IV PRN (16:38)
[2020-12-08] MEDS ORDERED: oxyCODONE 5 MG TABLET PO PRN (16:38)
[2020-12-08] MEDS ORDERED: HYDROmorphone 1 MG/ML CARPUJECT IVP PRN (16:38)
[2020-12-08] MEDS ORDERED: PROCHLORPERAZINE 10 MG/2 ML VIAL IVP PRN (16:38)
--- NOTE | 2020-12-08 16:38 | OPERATIVE REPORT ---
Operative Report - General Admit Date: 12/08/20 Procedure Date: 12/08/20 Planned Procedure: Left hip hemiarthroplasty Closed reduction percutaneous pinning left distal radius Pre-Op Diagnosis: Displaced femoral neck fracture left hip; displaced left distal radius [facility] Procedure Performed: Left hip hemiarthroplasty: [employer] #13 femoral component with 45 mm unipolar femoral head, high offset, +0 femoral neck Closed reduction left distal radius, percutaneous pinning with 0.062 inch K wires, application of short arm fiberglass splint Post Op Diagnosis: Same as preoperative diagnosis - Procedure Note Primary Surgeon: Chuckie Vee MD Secondary Surgeon: Steve OLIVAS Anesthesia Provider: Evelyn Grant CRNA Anesthesia Technique: Regional block, Spinal Estimated Blood Loss (mL): 100 Indications: This is a relatively healthy 80-year-old woman who sustained 2 falls yesterday, both him standing height, mechanical falls without history of preceding syncope, dizziness or chest pain. The first falls earlier in the day and was associated with a left wrist fracture the second fall occurred in the evening, injuring left hip, inability to bear weight left leg, brought to emergency room, admitted and had preoperative medical evaluation by her hospitalist. She had pain and deformity to both left wrist and left hip. X-rays and CT scan of left hip show displaced femoral neck fracture. X-rays of the left distal radius show displaced comminuted extra-articular and intra-articular fracture left distal radius with ulnar styloid fracture Findings: Displaced femoral neck fracture left hip with intact articular cartilage to acetabulum; displaced, comminuted left distal radius with ulnar styloid fracture, osteopenia 2 view Complications: None - Other Other Information/Narrative: After satisfactory spinal anesthesia had been achieved, the patient was placed in a lateral decubitus position and was secured in this position with the pegboard, 4 peg supporting the torso and pelvis. Left hip was facing superiorly. Left hip and lower extremity prepped and draped in sterile manner in the usual fashion. Timeout procedure was performed by the entire surgical team and all were in agreement. A physician printing bindery assistant was utilized for both procedures, felt to be medically necessary to provide exposure, protection of vital structures, facilitate reduction and wound closure. A longitudinal incision was made over the lateral aspect the left hip beginning above and extending below the greater trochanter. The skin, subcutaneous tissue and fascia jl were split in line with the incision. The anterior third of the gluteus medius and minimus were released. The left hip capsule was exposed in a T-shaped fashion. A femoral head was identified, removed with a corkscrew. The size of the femoral head was measured with calipers, 45 mm in diameter. The femoral canal was opened with a box osteotome, reamer and lateral offset reamer. Broaching was carried out to a #13 which was found to be stable. Trial reduction was performed. Permanent prosthesis was inserted, noncemented #13 high offset femoral component, 45 mm unipolar ball with +0 head. A good reduction was achieved, good range of motion, good leg length tension, no sign of instability. Wound was irrigated with dilute Betadine. Saline lavage was then performed. The hip abductors were repaired with #1 strata fix suture, myotendinous junction. The fascia jl was closed with oh strata fix suture, subcutaneous tissue 2 oh strata fix suture, subcuticular closure with 3 oh strata fix suture, Dermabond, silver impregnated dressing The patient was then repositioned on the operating room table in supine position with the left arm over arm extension table. Left upper extremity was prepped and draped in sterile manner in the usual fashion. A timeout procedure was performed by the entire operating room team and all were in agreement. The C- arm image intensifier was draped. Fingertrap traction was performed over a bump providing tractionWith some palmar flexion and ulnar deviation. Direct manipulation at the fracture site was also performed dorsally. 4 K wires were inserted, 3 from the radial side and 1 from the ulnar side beginning distally and placing them in more proximal position. The fracture appeared to be stable, satisfactory alignment. The K wires cut external to skin, capital sterile ball, pin gauze dressing, short arm well-padded volar fiberglass splint. She received 2 g of Ancef prior to the hip incision and a gram of tranxemic acid.
[2020-12-08] MEDS ORDERED: LACTATED RINGERS 1,000 ML IV ONE (16:48)
[2020-12-08] MEDS ORDERED: SODIUM CHLORIDE FLUSH 0.9% 10 ML SYRINGE IVP SCH (17:00)
--- NOTE | 2020-12-08 18:26 | ANESTHESIA POST OP EVALUATION ---
Anesthesia Post Eval - Post Anesthesia Eval Vitals: Last Vital Signs Temp 36.3 C L 12/08/20 18:00 Pulse 91 12/08/20 18:00 Resp 16 12/08/20 18:00 BP 133/71 H 12/08/20 18:00 Pulse Ox 95 12/08/20 18:00 CV Function Including HR & BP: Stable Pain Control: Satisfactory Nausea & Vomiting: Negative Mental Status: Baseline Respiratory Status: Airway Patent Hydration Status: Satisfactory Anesthesia Complications: None
--- NOTE | 2020-12-08 19:56 | XRAY Report ---
PROCEDURE: Hip w/Pelvis 1V LT INDICATIONS: Postop 2 view TECHNIQUE: AP pelvis with lateral view(s) of the unilateral left hip(s). COMPARISON: CT left hip region same day reviewed.. FINDINGS: Bones: There has been interval placement of a total left hip arthroplasty, with normal alignment esta blished, resulting femoral neck fracture on the left.. Soft tissues: The visualized bowel gas pattern is normal. No suspicious soft tissue calcifications. IMPRESSION: Normal alignment after left total hip arthroplasty in this patient with documented femor al neck fracture earlier same-day by CT scanning. Excellent alignment established. Reviewed by: Fermin Velasco MD on 12/08/2020 7:55 PM PDT Approved by: Fermin Velasco MD on 12/08/2020 7:55 PM PDT Station ID: [id number]
[2020-12-08] MEDS: ACETAMINOPHEN 325 MG TABLET PO PRN (20:04)
[2020-12-08] MEDS: ASPIRIN EC 81 MG TABLET PO SCH (21:04)
[2020-12-08] MEDS: ceFAZolin 2 GM/50 ML 2 GM/50 ML BAG IV SCH (21:04)
[2020-12-09] MEDS: ACETAMINOPHEN 325 MG TABLET PO PRN ×2 (00:10→05:20)
[2020-12-09] MEDS: oxyCODONE 5 MG TABLET PO PRN ×4 (00:11→20:06)
[2020-12-09] MEDS: SODIUM CHLORIDE FLUSH 0.9% 10 ML SYRINGE IVP SCH ×4 (00:21→23:49)
[2020-12-09] MEDS: ceFAZolin 2 GM/50 ML 2 GM/50 ML BAG IV SCH (05:15)
[2020-12-09 06:04] LABS: BASOPHILS % (AUTO) 0.1 %; HCT - HEMATOCRIT 34.6 % (37.0-47.0); HGB - HEMOGLOBIN 11.6 g/dL (12.0-16.0); LYMPHOCYTES % (AUTO) 5.7 %; MEAN CORPUSCULAR HEMOGLOBIN 30.9 pg (27.0-31.0); MEAN CORPUSCULAR HGB CONC 33.5 g/dL (32.0-36.0); MEAN PLATELET VOLUME 10.6 fL (7.9-10.8); MONOCYTES % (AUTO) 11.9 %; NEUTROPHILS % (AUTO) 81.7 %; PLT - PLATELET COUNT 174 10^3/uL (130-450); RED BLOOD COUNT 3.76 10^6/uL (4.20-5.40); RED CELL DISTRIBUTION WIDTH 13.4 % (12.0-15.0); WHITE BLOOD COUNT 15.7 x10^3/uL (4.8-10.8)
[2020-12-09 06:11] LABS: ABNORMAL LYMPHS % (MANUAL) 0 %; BAND NEUTROPHILS % (MANUAL) 0 %
[2020-12-09 06:17] LABS: CALCIUM 8.8 mg/dL (8.5-10.3); CREATININE 0.6 mg/dL (0.4-1.0); POTASSIUM 4.2 mmol/L (3.5-5.0)
[2020-12-09 06:28] LABS: DIFFERENTIAL COMMENT MANUAL DIFFERENTIAL; LYMPHOCYTES # (MANUAL) 0.6 10^3/uL (1.5-3.5); LYMPHOCYTES % (MANUAL) 4 %; MONOCYTES # (MANUAL) 1.4 10^3/uL (0.0-1.0); NEUTROPHILS # (MANUAL) 13.7 10^3/uL (1.5-6.6); PLATELET ESTIMATE, MANUAL NORMAL (130-450,000) (NORMAL); PLATELET MORPHOLOGY NORMAL APPEARANCE (NORMAL); RBC MORPHOLOGY (MULTIPLE) NORMAL APPEARANCE (NORMAL); WBC MORPHOLOGY (MULTIPLE) NORMAL APPEARANCE (NORMAL)
--- NOTE | 2020-12-09 07:20 | PROVIDER PROGRESS NOTE ---
Subjective - Prog Note Date Prog Note Date: 12/09/20 - Subjective Subjective: She reports doing well today. States her pain is relatively controlled and about a 4 out of 10. She feels the pain is worse in her left wrist and her left hip but she has not been moving it very much since the surgery yesterday. She is looking forward to working with physical therapy. Current Medications - Current Medications Current Medications: Active Medications Acetaminophen (Acetaminophen 325 Mg Tablet) 1,000 mg PO TID [facility] Aspirin (Aspirin Ec 81 Mg Tablet) 81 mg PO BID [facility] Last Admin: 12/08/20 21:04 Dose: 81 mg Documented by: Docusate Sodium (Docusate Sodium 100 Mg Capsule) 100 mg PO BID PRN PRN Reason: Constipation Enoxaparin Sodium (Enoxaparin 40 Mg/0.4 Ml Syringe) 40 mg SUBQ DAILY [facility] Hydromorphone HCl (Hydromorphone 1 Mg/Ml Carpuject) 1 mg IVP Q2HR PRN PRN Reason: Breakthrough Pain Ondansetron HCl (Ondansetron Odt 4 Mg Tablet) 4 mg TL Q6HR PRN PRN Reason: Nausea / Vomiting Ondansetron HCl (Ondansetron 4 Mg/2 Ml Vial) 4 mg IVP Q6HR PRN PRN Reason: Nausea / Vomiting Oxycodone HCl (Oxycodone 5 Mg Tablet) 5 mg PO Q4HR PRN PRN Reason: Pain 5 to 7 Last Admin: 12/09/20 00:11 Dose: 5 mg Documented by: Polyethylene Glycol (Polyethylene Glycol 3350 17 Gm Packet) 17 gm PO DAILY [facility] Prochlorperazine Edisylate (Prochlorperazine 10 Mg/2 Ml Vial) 10 mg IVP Q6HR PRN PRN Reason: Nausea / Vomiting Sodium Chloride (Sodium Chloride Flush 0.9% 10 Ml Syringe) 10 ml IVP PRN PRN PRN Reason: NEEDED PER PROVIDER ORDERS Sodium Chloride (Sodium Chloride Flush 0.9% 10 Ml Syringe) 10 ml IVP 0100,0900,1700 [facility] Last Admin: 12/09/20 00:21 Dose: 10 ml Documented by: Aspirin [Adult Aspirin] 81 mg DAILY 11/03/17 Multivitamin [Multiple Vitamins] 1 tab DAILY 11/03/17 Objective - Vital Signs/Intake & Output Reviewed Vital Signs: Yes Vital Signs: Vital Signs x48h Temp Pulse Resp BP BP Pulse Ox 12/09/20 05:00 36.6 C 93 16 124/53 L 95 12/09/20 00:08 36.9 C 86 16 134/68 H 95 Intake & Output: Intake & Output 12/06/20 12/07/20 12/08/20 12/09/20 23:59 23:59 23:59 23:59 Intake Total 1520 50 Output Total 1925 650 Balance -405 -600 - Objective General Appearance: positive: No acute distress, Alert Eyes Bilateral: positive: Normal inspection, Conjunctivae nml ENT: positive: ENT inspection nml Neck: positive: Nml inspection Respiratory: positive: No respiratory distress. negative: Wheezes, Rales Cardiovascular: positive: Regular rate & rhythm Abdomen: positive: Non-tender, No distention. negative: Tenderness Extremities: positive: No pedal edema, Other (Dressing in place over the lateral aspect of the left hip. No erythema. Sensation is intact and +2 dorsalis pedis pulses. Splint is also in place over the left wrist. She is able to move her digits and she has less than 2 seconds capillary refill.) Neurologic/Psychiatric: negative: Disoriented to person, Disoriented to place, Disoriented to time - Lab Results Fish Bones: 12/09/20 05:09 12/09/20 05:09 Other Labs: Lab Results x24hrs 12/09/20 12/09/20 Range/Units 05:09 05:09 WBC 15.7 H (4.8-10.8) x10^3/uL RBC 3.76 L (4.20-5.40) 10^6/uL Hgb 11.6 L (12.0-16.0) g/dL Hct 34.6 L (37.0-47.0) % MCV 92.0 (81.0-99.0) fL MCH 30.9 (27.0-31.0) pg MCHC 33.5 (32.0-36.0) g/dL RDW 13.4 (12.0-15.0) % Plt Count 174 (130-450) 10^3/uL MPV 10.6 (7.9-10.8) fL Neut # (Auto) Not Reportable Lymph # (Auto) Not Reportable [place] # (Auto) Not Reportable Eos # (Auto) Not Reportable Baso # (Auto) Not Reportable Absolute Nucleated RBC Not Reportable Total Counted 100 Band Neuts % (Manual) 0 (0 - 10) % Abnorm Lymph % (Manual) 0 % Nucleated RBC % Not Reportable Neutrophils # (Manual) 13.7 H (1.5-6.6) 10^3/uL Lymphocytes # (Manual) 0.6 L (1.5-3.5) 10^3/uL Monocytes # (Manual) 1.4 H (0.0-1.0) 10^3/uL Eosinophils # (Manual) 0.0 (0-0.7) 10^3/uL Basophils # (Manual) 0.0 (0-0.1) 10^3/uL Differential Comment MANUAL DIFFERENTIAL WBC Morphology NORMAL APPEARANCE (NORMAL) Platelet Estimate NORMAL (130-450,000) (NORMAL) Platelet Morphology NORMAL APPEARANCE (NORMAL) RBC Morph Micro Appear NORMAL APPEARANCE (NORMAL) Sodium 135 (135-145) mmol/L Potassium 4.2 (3.5-5.0) mmol/L Chloride 102 (101-111) mmol/L Carbon Dioxide 23 (21-32) mmol/L Anion Gap 10.0 (6-13) BUN 13 (6-20) mg/dL Creatinine 0.6 (0.4-1.0) mg/dL Estimated GFR (MDRD) 97 (>89) Glucose 137 H (70-100) mg/dL Calcium 8.8 (8.5-10.3) mg/dL ABX Reporting Has patient been on IV antibiotics over the past 48 hours?: No Assessment/Plan - Problem List (1) Hip fracture Impression: She is postop day 1 of a left hip hemiarthroplasty. The plan to continue pain control with Tylenol 1 g 3 times daily with Dilaudid IV and oxycodone as needed. We will continue her on Lovenox for DVT prophylaxis. She will begin to work w [facility] physical therapy today and we suspect she will likely need a SNF on discharge. We will start her on Fosamax 2 weeks after her fracture. Qualifiers: Encounter type: initial encounter Fracture type: closed Laterality: left Qualified Code(s): S72.002A - Fracture of unspecified part of neck of left femur, initial encounter for closed fracture (2) Left wrist fracture Impression: She is postop day 1 of a closed reduction and percutaneous pinning of the left distal radius. We will continue pain control with Tylenol 1 g 3 times daily and oxycodone as needed. Appreciate orthopedic surgery input. (3) Frequent falls Impression: We suspect that her falls may related to her visual impairment given she has macular degeneration, cataracts, and glaucoma. PT will evaluate her today and assess her gait. She will need outpatient ophthalmology follow-up. (4) Osteoporosis Impression: She has been off her Fosamax in the past but has either not for the prescription or taking the medication. Given she now has the hip fracture, we will start her on Fosamax 2 weeks postoperatively or she can consider zoledronic acid on outpatient basis given her history of noncompliance. This can be initiated by her primary care physician.
[2020-12-09] MEDS: ASPIRIN EC 81 MG TABLET PO SCH ×2 (09:23→21:10)
[2020-12-09] MEDS: ACETAMINOPHEN 500 MG TABLET PO SCH ×3 (09:23→21:10)
[2020-12-09] MEDS: polyethylene glycoL 3350 17 GM PACKET PO SCH (09:23)
[2020-12-09] MEDS: ENOXAPARIN 40 MG/0.4 ML SYRINGE SUBQ SCH (09:24)
--- NOTE | 2020-12-09 09:45 | XRAY Report ---
PROCEDURE: OR C-Arm Procedure INDICATIONS: LEFT ARM FRACTURE TECHNIQUE: Spot fluoroscopic intraoperative images COMPARISON: None. FINDINGS: Spot fluoroscopic intraoperative images demonstrating wire fixation of the distal radius. There is ex pected intraoperative alignment. Reviewed by: Jeff Morgan MD on 12/09/2020 9:44 AM PDT Approved by: Jeff Morgan MD on 12/09/2020 9:44 AM PDT Station ID: [id number]
--- NOTE | 2020-12-09 11:06 | PROVIDER PROGRESS NOTE ---
Subjective - General Admit Date: 12/08/20 Procedure Date: 12/08/20 Post Op Days: 1 Procedure Performed: Left hip hemiarthroplasty and percutaneous pinning of a left distal radius - Review of Systems Wound/Incisions: positive: Dressing dry and intact, No drainage General: negative: Fever, Chills Musculoskeletal: positive: Joint pain, Joint swelling (Mild pain and swelling to left hip and left wrist) - Other Other Information/Narrative: Patient is a 80-year-old female with a history of osteoporosis, GERD who is p ostop day 1 a left hip hemiarthroplasty for subcapital femoral neck fracture and a percutaneous pinning of her left distal radius for a displaced distal radius fracture. Patient is pleasant and alert with well-controlled pain. Dressing is dry and intact patient denies chest pain fever shortness of breath or chills. Objective - Patient Data Vital Signs: Vital Signs x48h Temp Pulse Resp BP Pulse Ox 12/09/20 09:56 94 12/09/20 07:36 37.2 C 86 18 115/54 L 96 12/09/20 05:00 36.6 C 93 16 124/53 L 95 Weight: Weight 12/07/20 12/08/20 12/09/20 23:59 23:59 23:59 Weight (kg) 65.8 kg 63.5 kg Intake & Output: Intake and Output Totals x24h 12/07/20 12/08/20 12/09/20 23:59 23:59 23:59 Intake Total 1520 735 Output Total 1925 1450 Balance -405 -939 - Lab Results Lab Results: 12/09/20 05:09 12/09/20 05:09 Other Lab Results: Lab Results x24hrs 12/09/20 12/09/20 Range/Units 05:09 05:09 WBC 15.7 H (4.8-10.8) x10^3/uL RBC 3.76 L (4.20-5.40) 10^6/uL Hgb 11.6 L (12.0-16.0) g/dL Hct 34.6 L (37.0-47.0) % MCV 92.0 (81.0-99.0) fL MCH 30.9 (27.0-31.0) pg MCHC 33.5 (32.0-36.0) g/dL RDW 13.4 (12.0-15.0) % Plt Count 174 (130-450) 10^3/uL MPV 10.6 (7.9-10.8) fL Neut # (Auto) Not Reportable Lymph # (Auto) Not Reportable [place] # (Auto) Not Reportable Eos # (Auto) Not Reportable Baso # (Auto) Not Reportable Absolute Nucleated RBC Not Reportable Total Counted 100 Band Neuts % (Manual) 0 (0 - 10) % Abnorm Lymph % (Manual) 0 % Nucleated RBC % Not Reportable Neutrophils # (Manual) 13.7 H (1.5-6.6) 10^3/uL Lymphocytes # (Manual) 0.6 L (1.5-3.5) 10^3/uL Monocytes # (Manual) 1.4 H (0.0-1.0) 10^3/uL Eosinophils # (Manual) 0.0 (0-0.7) 10^3/uL Basophils # (Manual) 0.0 (0-0.1) 10^3/uL Differential Comment MANUAL DIFFERENTIAL WBC Morphology NORMAL APPEARANCE (NORMAL) Platelet Estimate NORMAL (130-450,000) (NORMAL) Platelet Morphology NORMAL APPEARANCE (NORMAL) RBC Morph Micro Appear NORMAL APPEARANCE (NORMAL) Sodium 135 (135-145) mmol/L Potassium 4.2 (3.5-5.0) mmol/L Chloride 102 (101-111) mmol/L Carbon Dioxide 23 (21-32) mmol/L Anion Gap 10.0 (6-13) BUN 13 (6-20) mg/dL Creatinine 0.6 (0.4-1.0) mg/dL Estimated GFR (MDRD) 97 (>89) Glucose 137 H (70-100) mg/dL Calcium 8.8 (8.5-10.3) mg/dL - Imaging Results Radiology Imaging: positive: EMP read indepedently (I have independently visualized the x-rays of the pelvis and left hip postop that show no apparent h ardware loosening good anatomical alignment after hemihip arthroplasty. I have independently visualized the Intra-Op C arm radiographs of the left radius With good anatomical alignment) - Current Medications Current Medications: Current Medications Generic Name Dose Route Start Last Admin Trade Name Freq PRN Reason Stop Dose Admin Acetaminophen 1,000 mg 12/09/20 09:00 12/09/20 09:23 Acetaminophen 500 Mg Tablet PO 1,000 mg TID DAYDAY Administration Aspirin 81 mg 12/08/20 21:00 12/09/20 09:23 Aspirin Ec 81 Mg Tablet PO 81 mg BID DAYDAY Administration Enoxaparin Sodium 40 mg 12/09/20 09:00 12/09/20 09:24 Enoxaparin 40 Mg/0.4 Ml Syringe SUBQ 40 mg DAILY DAYDAY Administration Oxycodone HCl 5 mg 12/08/20 00:17 12/09/20 09:55 Oxycodone 5 Mg Tablet PO 5 mg Q4HR PRN Administration Pain 5 to 7 Polyethylene Glycol 17 gm 12/09/20 09:00 12/09/20 09:23 Polyethylene Glycol 3350 17 Gm Packet PO 17 gm DAILY DAYDAY Administration Sodium Chloride 10 ml 12/08/20 01:00 12/09/20 09:24 Sodium Chloride Flush 0.9% 10 Ml Syringe IVP 10 ml 0100,0900,1700 DAYDAY Administration - Physical Exam Wound/Incisions: positive: Dressing dry and intact General Appearance: positive: No acute distress Respiratory: positive: No respiratory distress Skin: positive: Color nml, No rash Neurologic/Psychiatric: positive: Oriented x3 (Left hip dressing is dry and intact the skin is normal color normal warmth no appreciable swelling. The left wrist is splinted with the skin of the fingers normal color normal warmth mild swelling good capillary refill) ABX Reporting Has patient been on IV antibiotics over the past 48 hours?: Yes Impression/Plan - Problem List Problem List: Patient is a 80-year-old female with a history of osteoporosis, GERD who received a left hip hemiarthroplasty after suffering a subcapital femoral neck fracture and a myah mitten percutaneous pinning of the left distal radius for distal radius fracture performed by Dr Chuckie Vee at [facility] on 09/22/2020.Patient has dry dressing no signs of drainage no signs or symptoms of infection present. Patient's pain is relatively well controlled.. Patient is to continue getting PT/OT in order for a platform front wheeled walker was placed to help the patient ambulate given her injuries. After successful completion of her PT/OT For safe discharge to home or rehab facility patient is cleared from an orthopedic surgery standpoint to be discharged. For pain control when she gets discharged home patient can take [id number] Aleve and Tylenol with 5 mg of oxycodone for breakthrough pain. Patient is also to take 81 mg of aspirin twice daily for blood clot prevention.
[2020-12-10 05:16] LABS: BASOPHILS # (AUTO) 0.1 10^3/uL (0.0-0.1); BASOPHILS % (AUTO) 0.5 %; EOSINOPHILS # (AUTO) 0.1 10^3/uL (0.0-0.7); EOSINOPHILS % (AUTO) 0.4 %; HGB - HEMOGLOBIN 11.2 g/dL (12.0-16.0); LYMPHOCYTES # (AUTO) 1.3 10^3/uL (1.5-3.5); LYMPHOCYTES % (AUTO) 9.4 %; MEAN CORPUSCULAR HEMOGLOBIN 30.1 pg (27.0-31.0); MEAN CORPUSCULAR VOLUME 94.1 fL (81.0-99.0); MEAN PLATELET VOLUME 10.9 fL (7.9-10.8); MONOCYTES # (AUTO) 1.3 10^3/uL (0.0-1.0); MONOCYTES % (AUTO) 9.5 %; NEUTROPHILS # (AUTO) 10.6 10^3/uL (1.5-6.6); NEUTROPHILS % (AUTO) 79.6 %; PLT - PLATELET COUNT 164 10^3/uL (130-450); RED BLOOD COUNT 3.72 10^6/uL (4.20-5.40); RED CELL DISTRIBUTION WIDTH 13.8 % (12.0-15.0); WHITE BLOOD COUNT 13.3 x10^3/uL (4.8-10.8)
[2020-12-10] MEDS: ACETAMINOPHEN 500 MG TABLET PO SCH ×3 (05:23→21:28)
[2020-12-10 05:25] LABS: CALCIUM 8.7 mg/dL (8.5-10.3); CREATININE 0.5 mg/dL (0.4-1.0); POTASSIUM 3.9 mmol/L (3.5-5.0)
--- NOTE | 2020-12-10 07:18 | PROVIDER PROGRESS NOTE ---
Subjective - Prog Note Date Prog Note Date: 12/10/20 - Subjective Subjective: She reports doing well overall. Pain is relatively well controlled. Most of her discomfort is in the left wrist. She been able to ambulate with a walker and she is looking forward to going to rehab. Current Medications - Current Medications Current Medications: Active Medications Acetaminophen (Acetaminophen 500 Mg Tablet) 1,000 mg PO TID [facility] Last Admin: 12/10/20 05:23 Dose: 1,000 mg Documented by: Aspirin (Aspirin Ec 81 Mg Tablet) 81 mg PO BID [facility] Last Admin: 12/09/20 21:10 Dose: 81 mg Documented by: Docusate Sodium (Docusate Sodium 100 Mg Capsule) 100 mg PO BID PRN PRN Reason: Constipation Enoxaparin Sodium (Enoxaparin 40 Mg/0.4 Ml Syringe) 40 mg SUBQ DAILY [facility] Last Admin: 12/09/20 09:24 Dose: 40 mg Documented by: Hydromorphone HCl (Hydromorphone 1 Mg/Ml Carpuject) 1 mg IVP Q2HR PRN PRN Reason: Breakthrough Pain Ondansetron HCl (Ondansetron Odt 4 Mg Tablet) 4 mg TL Q6HR PRN PRN Reason: Nausea / Vomiting Ondansetron HCl (Ondansetron 4 Mg/2 Ml Vial) 4 mg IVP Q6HR PRN PRN Reason: Nausea / Vomiting Oxycodone HCl (Oxycodone 5 Mg Tablet) 5 mg PO Q4HR PRN PRN Reason: Pain 5 to 7 Last Admin: 12/09/20 20:06 Dose: 5 mg Documented by: Polyethylene Glycol (Polyethylene Glycol 3350 17 Gm Packet) 17 gm PO DAILY [facility] Last Admin: 12/09/20 09:23 Dose: 17 gm Documented by: Prochlorperazine Edisylate (Prochlorperazine 10 Mg/2 Ml Vial) 10 mg IVP Q6HR PRN PRN Reason: Nausea / Vomiting Sodium Chloride (Sodium Chloride Flush 0.9% 10 Ml Syringe) 10 ml IVP PRN PRN PRN Reason: NEEDED PER PROVIDER ORDERS Sodium Chloride (Sodium Chloride Flush 0.9% 10 Ml Syringe) 10 ml IVP 0100,0900,1700 [facility] Last Admin: 12/09/20 23:49 Dose: 10 ml Documented by: Aspirin [Adult Aspirin] 81 mg DAILY 11/03/17 Multivitamin [Multiple Vitamins] 1 tab DAILY 11/03/17 Objective - Vital Signs/Intake & Output Reviewed Vital Signs: Yes Vital Signs: Vital Signs x48h Temp Pulse Resp BP Pulse Ox 12/10/20 04:30 36.6 C 95 18 128/94 H 93 12/09/20 23:20 36.8 C 95 16 124/66 94 Intake & Output: Intake & Output 12/07/20 12/08/20 12/09/20 12/10/20 23:59 23:59 23:59 23:59 Intake Total 1520 1675 100 Output Total 1925 1525 500 Balance -405 150 -400 - Objective General Appearance: positive: No acute distress, Alert Eyes Bilateral: positive: Normal inspection, Conjunctivae nml ENT: positive: ENT inspection nml Neck: positive: Nml inspection Respiratory: positive: No respiratory distress. negative: Wheezes, Rales Cardiovascular: positive: Regular rate & rhythm, No murmur. negative: Tachycardia Abdomen: positive: Non-tender, No distention. negative: Tenderness Skin: positive: Warm, Dry Extremities: positive: No pedal edema, Other (Dressing in place over the lateral aspect of the left hip. There is mild surrounding edema but no erythema or tenderness. Sensation is intact at the extremity. Splint in place over the left wrist. Sensation intact.) Neurologic/Psychiatric: negative: Disoriented to person, Disoriented to place - Lab Results Fish Bones: 12/10/20 04:45 12/10/20 04:45 Other Labs: Lab Results x24hrs 12/10/20 12/10/20 Range/Units 04:45 04:45 WBC 13.3 H (4.8-10.8) x10^3/uL RBC 3.72 L (4.20-5.40) 10^6/uL Hgb 11.2 L (12.0-16.0) g/dL Hct 35.0 L (37.0-47.0) % MCV 94.1 (81.0-99.0) fL MCH 30.1 (27.0-31.0) pg MCHC 32.0 (32.0-36.0) g/dL RDW 13.8 (12.0-15.0) % Plt Count 164 (130-450) 10^3/uL MPV 10.9 H (7.9-10.8) fL Neut # (Auto) 10.6 H (1.5-6.6) 10^3/uL Lymph # (Auto) 1.3 L (1.5-3.5) 10^3/uL [place] # (Auto) 1.3 H (0.0-1.0) 10^3/uL Eos # (Auto) 0.1 (0.0-0.7) 10^3/uL Baso # (Auto) 0.1 (0.0-0.1) 10^3/uL Absolute Nucleated RBC 0.00 x10^3/uL Nucleated RBC % 0.0 /100WBC Sodium 133 L (135-145) mmol/L Potassium 3.9 (3.5-5.0) mmol/L Chloride 98 L (101-111) mmol/L Carbon Dioxide 23 (21-32) mmol/L Anion Gap 12.0 (6-13) BUN 15 (6-20) mg/dL Creatinine 0.5 (0.4-1.0) mg/dL Estimated GFR (MDRD) 119 (>89) Glucose 136 H (70-100) mg/dL Calcium 8.7 (8.5-10.3) mg/dL ABX Reporting Has patient been on IV antibiotics over the past 48 hours?: No Assessment/Plan - Problem List (1) Hip fracture Impression: She is now postop day 2 of a left hip hemiarthroplasty. She is doing quite well postoperatively and her pain is managed. We will continue Tylenol 1 g 3 times daily and oxycodone as needed. She has not been needing the Dilaudid. Lovenox for DVT prophylaxis with aspirin 81 mg twice daily which she will continue on discharge for DVT prophylaxis. She will continue with physical therapy and we are looking to get her to a long term facility tomorrow. We will start her on Fosamax 2 weeks after the fracture. Qualifiers: Encounter type: initial encounter Fracture type: closed Laterality: left Qualified Code(s): S72.002A - Fracture of unspecified part of neck of left femur, initial encounter for closed fracture (2) Left wrist fracture Impression: She is postop day 2 of a closed reduction and percutaneous pinning of the left distal radius. Her pain is relatively managed with the Tylenol 1 g 3 times daily and the oxycodone as needed. She will continue outpatient follow-up with orthopedic surgery once discharged. (3) Frequent falls Impression: We suspect that her falls may related to her visual impairment given she has macular degeneration, cataracts, and glaucoma. She will be going to skilled nurse facility for rehab but given her left hip hemiarthroplasty. We have also recommended that she continue to follow-up with ophthalmology. (4) Osteoporosis Impression: We discussed the need for a bisphosphonate and she is agreeable to trying Fosamax. We discussed that if she does not tolerate Fosamax due to GERD then zoledronic acid can be considered. The Fosamax will be started 2 weeks after her fracture.
--- NOTE | 2020-12-10 07:46 | PROVIDER PROGRESS NOTE ---
Subjective - General Admit Date: 12/08/20 Procedure Date: 12/08/20 Post Op Days: 2 Procedure Performed: Left hip hemiarthroplasty and percutaneous pinning of a left distal radius - Review of Systems Wound/Incisions: positive: Dressing dry and intact General: negative: Fever, Chills Pulmonary: negative: Shortness of breath Cardiovascular: negative: Chest pain Gastrointestinal: negative: Nausea (80-year-old female who is postop day 2 left hip hemiarthroplasty and percutaneous pinning for left distal radius fracture. Patient denies any signs or symptoms of infection. Patient continues to get physical therapy says she has been up to a chair and up to a commode. Her plan is discharge to an S), Vomiting Musculoskeletal: positive: Joint pain, Joint swelling (Mild pain and swelling to left hip and left wrist) Objective - Patient Data Reviewed Vital Signs: Yes Vital Signs: Vital Signs x48h Temp Pulse Resp BP Pulse Ox 12/10/20 04:30 36.6 C 95 18 128/94 H 93 Weight: Weight 12/08/20 12/09/20 12/10/20 23:59 23:59 23:59 Weight (kg) 63.5 kg Intake & Output: Intake and Output Totals x24h 12/08/20 12/09/20 12/10/20 23:59 23:59 23:59 Intake Total 1520 1675 100 Output Total 1925 1525 500 Balance -405 150 -400 - Lab Results Lab Results: 12/10/20 04:45 12/10/20 04:45 Other Lab Results: Lab Results x24hrs 12/10/20 12/10/20 Range/Units 04:45 04:45 WBC 13.3 H (4.8-10.8) x10^3/uL RBC 3.72 L (4.20-5.40) 10^6/uL Hgb 11.2 L (12.0-16.0) g/dL Hct 35.0 L (37.0-47.0) % MCV 94.1 (81.0-99.0) fL MCH 30.1 (27.0-31.0) pg MCHC 32.0 (32.0-36.0) g/dL RDW 13.8 (12.0-15.0) % Plt Count 164 (130-450) 10^3/uL MPV 10.9 H (7.9-10.8) fL Neut # (Auto) 10.6 H (1.5-6.6) 10^3/uL Lymph # (Auto) 1.3 L (1.5-3.5) 10^3/uL [place] # (Auto) 1.3 H (0.0-1.0) 10^3/uL Eos # (Auto) 0.1 (0.0-0.7) 10^3/uL Baso # (Auto) 0.1 (0.0-0.1) 10^3/uL Absolute Nucleated RBC 0.00 x10^3/uL Nucleated RBC % 0.0 /100WBC Sodium 133 L (135-145) mmol/L Potassium 3.9 (3.5-5.0) mmol/L Chloride 98 L (101-111) mmol/L Carbon Dioxide 23 (21-32) mmol/L Anion Gap 12.0 (6-13) BUN 15 (6-20) mg/dL Creatinine 0.5 (0.4-1.0) mg/dL Estimated GFR (MDRD) 119 (>89) Glucose 136 H (70-100) mg/dL Calcium 8.7 (8.5-10.3) mg/dL - Imaging Results Radiology Imaging: positive: EMP read indepedently (I have independently visualized the radiographs of Left hip and left distal radius that show good reduction of fractures good anatomical alignment no apparent hardware looseni ng.) - Current Medications Current Medications: Current Medications Generic Name Dose Route Start Last Admin Trade Name Freq PRN Reason Stop Dose Admin Acetaminophen 1,000 mg 12/09/20 09:00 12/10/20 05:23 Acetaminophen 500 Mg Tablet PO 1,000 mg TID DAYDAY Administration Aspirin 81 mg 12/08/20 21:00 12/09/20 21:10 Aspirin Ec 81 Mg Tablet PO 81 mg BID DAYDAY Administration Enoxaparin Sodium 40 mg 12/09/20 09:00 12/09/20 09:24 Enoxaparin 40 Mg/0.4 Ml Syringe SUBQ 40 mg DAILY DAYDAY Administration Oxycodone HCl 5 mg 12/08/20 00:17 12/09/20 20:06 Oxycodone 5 Mg Tablet PO 5 mg Q4HR PRN Administration Pain 5 to 7 Polyethylene Glycol 17 gm 12/09/20 09:00 12/09/20 09:23 Polyethylene Glycol 3350 17 Gm Packet PO 17 gm DAILY DAYDAY Administration Sodium Chloride 10 ml 12/08/20 01:00 12/09/20 23:49 Sodium Chloride Flush 0.9% 10 Ml Syringe IVP 10 ml 0100,0900,1700 DAYDAY Administration - Physical Exam Wound/Incisions: positive: Dressing dry and intact, No drainage General Appearance: positive: No acute distress Respiratory: positive: No respiratory distress Skin: positive: Color nml, No rash, Warm, Dry Extremities: positive: Other (Patient has some reduced range of motion in the left hip.Patient can move her fingers of her left hand is grossly neurovascularly intact in her left hip left wrist) Neurologic/Psychiatric: positive: Other ABX Reporting Has patient been on IV antibiotics over the past 48 hours?: Yes Impression/Plan - Problem List Problem List: Patient 80-year-old female who is postop day 2 left hip hemiarthroplasty and left distal radius percutaneous pinning following multiple falls. Patient shows no signs or symptoms of infection is currently weightbearing as tolerated with a platform front wheeled walker. Patient is grossly neurovascularly intact in her left wrist and left hip.Plan is to have the patient discharged to SNF in [place] for more PT/OT. Patient is to take 81 mg aspirin twice daily for 6 weeks for blood clot prevention.
[2020-12-10] MEDS: polyethylene glycoL 3350 17 GM PACKET PO SCH (08:59)
[2020-12-10] MEDS: ASPIRIN EC 81 MG TABLET PO SCH ×2 (09:00→21:28)
[2020-12-10] MEDS: SODIUM CHLORIDE FLUSH 0.9% 10 ML SYRINGE IVP SCH ×2 (09:01→15:45)
[2020-12-10] MEDS: ENOXAPARIN 40 MG/0.4 ML SYRINGE SUBQ SCH (09:01)
[2020-12-10] MEDS: DOCUSATE SODIUM 100 MG CAPSULE PO PRN (18:02)
[2020-12-11] MEDS: SODIUM CHLORIDE FLUSH 0.9% 10 ML SYRINGE IVP SCH ×2 (00:50→08:59)
[2020-12-11] MEDS: ACETAMINOPHEN 500 MG TABLET PO SCH (06:30)
[2020-12-11 08:22] LABS: BASOPHILS # (AUTO) 0.1 10^3/uL (0.0-0.1); BASOPHILS % (AUTO) 0.4 %; EOSINOPHILS # (AUTO) 0.1 10^3/uL (0.0-0.7); EOSINOPHILS % (AUTO) 0.7 %; HCT - HEMATOCRIT 34.7 % (37.0-47.0); HGB - HEMOGLOBIN 11.1 g/dL (12.0-16.0); LYMPHOCYTES # (AUTO) 1.1 10^3/uL (1.5-3.5); LYMPHOCYTES % (AUTO) 8.7 %; MEAN CORPUSCULAR HEMOGLOBIN 29.6 pg (27.0-31.0); MEAN CORPUSCULAR VOLUME 92.5 fL (81.0-99.0); MEAN PLATELET VOLUME 10.6 fL (7.9-10.8); MONOCYTES % (AUTO) 8.2 %; NEUTROPHILS # (AUTO) 10.4 10^3/uL (1.5-6.6); NEUTROPHILS % (AUTO) 81.5 %; PLT - PLATELET COUNT 197 10^3/uL (130-450); RED BLOOD COUNT 3.75 10^6/uL (4.20-5.40); RED CELL DISTRIBUTION WIDTH 13.7 % (12.0-15.0); WHITE BLOOD COUNT 12.7 x10^3/uL (4.8-10.8)
[2020-12-11 08:26] LABS: CALCIUM 8.8 mg/dL (8.5-10.3); CREATININE 0.5 mg/dL (0.4-1.0); POTASSIUM 4.2 mmol/L (3.5-5.0)
[2020-12-11] MEDS: ENOXAPARIN 40 MG/0.4 ML SYRINGE SUBQ SCH (08:57)
[2020-12-11] MEDS: DOCUSATE SODIUM 100 MG CAPSULE PO PRN (08:58)
[2020-12-11] MEDS: polyethylene glycoL 3350 17 GM PACKET PO SCH (08:58)
[2020-12-11] MEDS: ASPIRIN EC 81 MG TABLET PO SCH (08:59)
[2020-12-11] MEDS ORDERED: DOCUSATE SODIUM 250 MG CAPSULE PO SCH (09:00)
[2020-12-11] MEDS ORDERED: SENNA 8.6 MG TABLET PO SCH (09:00)
--- NOTE | 2020-12-11 09:04 | Discharge Plan ---
"Discharge Plan for SNF / EAN - Discharge Plan And Transition Orders Problem Reviewed?: Yes Disposition: SNF DC/Xfer Condition: Good Allergies and Adverse Reactions: Allergies Allergy/AdvReac Type Severity Reaction Status Date / Time No Known Drug Allergies Allergy Verified 12/07/20 22:59 Health Concerns: She was admitted for left hip and wrist fracture. She went to the OR that same evening for a left hip hemiarthroplasty and pinning of the left wrist. She has done well postoperatively and her pain has been controlled with Tylenol. Plan of Treatment: She will need to begin Fosamax 70 mg every week on December 21. Will he did take aspirin 81 mg twice daily for DVT prophylaxis for 6 weeks. She will continue with Tylenol 1000 mg 3 times a day and oxycodone as needed. - SNF / EAN Transition Orders Admit to (Facility): [facility] Medicare Certification Statement: I certify that [facility] long term care is medically necessary on a continuing basis for any of the conditions for which she/he is receiving care during hospitalization. Notify PCP of admission and forward orders to primary provider for signature. Other Notification Orders: Call PCP immediately if patient develops dyspnea, chest pain/tightness or edema. House Bowel Program: Yes Additional Bowel Program Orders: If no BM after 2 days, nurse may give M.O.M. 30ml PO PRN and/or ducolax Supp 1 [place] and/or YOVANNY 250mg P.O., and/or senna 1-2 tabs PO. On day 3 nurse may give repeat above order until residents constipation is resolved. Orthopedic Orders: Weightbearing as tolerated. Medication Orders: PLEASE REFER TO THE DISCHARGE MEDICATION LIST. - Medications New Prescriptions: oxyCODONE [Roxicodone] 5 mg PO Q4HR PRN #20 tablet PRN Reason: Pain 5 to 7 Aspirin EC [Ecotrin] 81 mg PO BID #90 tablet Senna [Senokot] 8.6 mg PO DAILY #30 tablet Calcium Carbonate [Tums (Calcium Carbonate 500mg)] 500 mg PO BID #30 tablet Acetaminophen [Tylenol] 1,000 mg PO TID #30 tablet Cholecalciferol (Vitamin D3) [Vitamin D3] 1,000 unit PO DAILY #30 cap - Diet Type: Geriatric Texture: Regular Liquids: Thin - Therapies | Activity Therapy: Evaluation | Treat if indicated: PT, OT Rehabilitation Potential: Maximize functional status, Return to independent living Activity: Wt Bearing as Tolerated Assistance Devices: Walker Follow Up: She will need follow-up with orthopedic surgery in 10 to 14 days."
--- NOTE | 2020-12-11 09:13 | DISCHARGE SUMMARY ---
"Discharge Summary Admit Date: 12/07/20 Discharge Date: 12/11/20 Discharging Provider: Iban Carrasco Primary Care Provider: Guadalupe Patricia Code Status: Attempt Resuscitation Condition at Discharge: Good Discharge Disposition: 03 SNF DC/Xfer Discharge Facility Name: [facility] - DIAGNOSES Admission Diagnoses: Left hip fracture Left wrist fracture Hypokalemia Encounter for preoperative assessment Osteoporosis Frequent falls Discharge Diagnoses with Status of Each Condition: Left hip fracture - improved. Left wrist fracture - improved. Frequent falls - stable. Osteoporosis - stable. - HPI History of Present Illness: H&P per Dr. Otero: This is an independent 80-year-old female who was seen earlier today in the walk-in clinic in [place] because she fell and broke her left wrist. She tripped as she was walking over a pipe. She went home And was instructed to follow-up with orthopedics. In reviewing her medical records, she has been falling for several years now. The first recorded fall in the office chart was that of falling straight forward onto outstretched hands and smacking her chin on the ground in 2014. She thinks is because she cannot see well. She still stoutly maintains that her driving is just fine. She chooses not to drive at night. She was taking out the garbage. Fell again between the shed and fence and this time landed on her hip and had immediate pain. Using her right arm, and scooting along her right hip, she managed to get into the house and called EMS. She has not called her children yet or her brother to let them know she is here. She was seen in the emergency room by Dr. Brennan. There is no antecedent history of loss of consciousness, arrhythmia, chest pain, etc. Temperature was 36.5. Heart rate 80. Telemetry was sinus rhythm. Blood pressure 147/80. Respirations 16. 98% on room air. Physical exam was that of a pleasant elderly female, who unfortunately had a left hip fracture. On review of systems there is no antecedent history of A. fib, RI, valvular heart disease. She has not had any angina. She has chronic mild leg edema from varicose veins and that is unchanged. Her cardiovascular endurance has remained unchanged from a mildly sedentary lifestyle for over 2 years now. She has no major medical illnesses other than postmenopausal status, basal cell carcinoma of the face, GERD, allergic rhinitis with a history of balance problems. There has been no recent change in medications. In 2006 she had some vague chest discomfort associated with her allergies. At that time she was getting allergy injections. She had a Julien protocol stress test. Dr. Clements performed the test and she was able to achieve 7 metabolic equivalents. A normal hypertensive response. The emergency room provider, Dr. Brennan, has spoken to Dr. Vee, orthopedics. He is asked the patient to be admitted to our service and he will see the patient in the morning for surgery. - CONSULTS | PROCEDURES Consultations: Orthopedic Surgery, PT Procedures: She underwent left hip hemiarthroplasty ankle reduction with percutaneous pinning of left distal radius on December 08 with orthopedic surgery. - HOSPITAL COURSE Hospital Course: She was admitted for a left hip fracture and underwent left hip hemiarthroplasty on December 08. She also had a left distal radius fracture from a previous fall and underwent closed reduction and pinning of this fracture. She did well well postoperatively with physical therapy and her pain was controlled with Tylenol 1 g 3 times daily. She was discharged on December 11 to [facility] nursing [facility]. She was asked to begin Fosamax on 21 December which would be 2 weeks after her fracture. She was asked take Tylenol 1 g 3 times daily for pain control and oxycodone 5 mg as needed. She is also prescribed 81 mg of aspirin twice daily for 6 weeks for DVT prophylaxis. She will follow up with orthopedic surgery in 10 to 14 days. - ALLERGIES Allergies/Adverse Reactions: Allergies Allergy/AdvReac Type Severity Reaction Status Date / Time No Known Drug Allergies Allergy Verified 12/07/20 22:59 - MEDICATIONS Home Medications: Ambulatory Orders Medication Instructions Recorded Confirmed Multivitamin [Multiple Vitamins] 1 tab DAILY 11/03/17 12/07/20 Acetaminophen [Tylenol] 1,000 mg PO TID #30 tablet 12/11/20 Aspirin EC [Ecotrin] 81 mg PO BID #90 tablet 12/11/20 Calcium Carbonate [Tums (Calcium 500 mg PO BID #30 tablet 12/11/20 Carbonate 500mg)] Cholecalciferol (Vitamin D3) 1,000 unit PO DAILY #30 cap 12/11/20 [Vitamin D3] Senna [Senokot] 8.6 mg PO DAILY #30 tablet 12/11/20 oxyCODONE [Roxicodone] 5 mg PO Q4HR PRN #20 tablet 12/11/20 - PHYSICAL EXAM AT DISCHARGE General Appearance: positive: No acute distress, Alert Eyes Bilateral: positive: Normal inspection, Conjunctivae nml ENT: positive: ENT inspection nml Neck: positive: Nml inspection Respiratory: positive: No respiratory distress. negative: Wheezes, Rales Cardiovascular: positive: Regular rate & rhythm, No murmur. negative: Tachycardia Abdomen: positive: Non-tender, No distention. negative: Tenderness Skin: positive: Warm, Dry Extremities: positive: No pedal edema, Other (Dressing is in place over the lateral aspect of the left hip. Mild edema without erythema. Sensation intact. Splint in place over the left wrist. Less than 2 seconds capillary refill. Sensation intact.) Neurologic/Psychiatric: positive: Oriented x3. negative: Disoriented to person, Disoriented to place Physical Exam Other/Comments: Vital Signs - 24 hr 12/10/20 12/11/20 12/11/20 21:00 00:49 05:15 Temperature 36.8 C 37.0 C 37.1 C Heart Rate [ 101 H 95 94 Brachial] Respiratory 20 16 16 Rate Blood Pressure [Left Brachial artery] Blood Pressure 142/76 H 126/67 130/74 [Right Brachial artery] O2 Saturation 93 93 93 12/11/20 12/11/20 09:00 12:03 Temperature 36.8 C 37.1 C Heart Rate [ 106 H 102 H Brachial] Respiratory 18 17 Rate Blood Pressure 133/74 H [Left Brachial artery] Blood Pressure 148/80 H [Right Brachial artery] O2 Saturation 96 95 Oxygen O2 Source Room air - LABS Result Diagrams: 12/11/20 08:00 12/11/20 08:00 - DIAGNOSTIC IMAGING Diagnostic Imaging Results: Final report reviewed - QUALITY (Female Hip Fx Only) Was patient sent home on osteoporosis medication?: Yes - FOLLOW UP Follow Up: She will need follow-up with orthopedic surgery in 10 to 14 days. - TIME SPENT Time Spent in Discharge (Minutes): 32"
[2020-12-11 10:11] LABS: B. PARAPERTUSSIS- RESP PCR PAN NOT DETECTED; B. PERTUSSIS- RESP PCR PANEL NOT DETECTED; C. PNEUMONIAE- RESP PCR PANEL NOT DETECTED; CORONAVIRUS 229E-RESP PCR NOT DETECTED; CORONAVIRUS HKU1-RESP PCR NOT DETECTED; CORONAVIRUS NL63-RESP PCR NOT DETECTED; CORONAVIRUS OC43-RESP PCR NOT DETECTED; HUMAN METAPNEUMOVIRUS NOT DETECTED; INFLUENZA A- RESP PCR PANEL NOT DETECTED; INFLUENZA B - RESP PCR PANEL NOT DETECTED; M. PNEUMONIAE- RESP PCR PANEL NOT DETECTED; PARAINFLUENZA VIRUS 1 NOT DETECTED; PARAINFLUENZA VIRUS 2 NOT DETECTED; PARAINFLUENZA VIRUS 3 NOT DETECTED; PARAINFLUENZA VIRUS 4 NOT DETECTED; RHINOVIRUS/ENTEROVIRUS NOT DETECTED; RSV- RESP PCR PANEL NOT DETECTED; SARS-CoV-2 -RESP PCR PANEL NOT DETECTED
[2020-12-11] MEDS: oxyCODONE 5 MG TABLET PO PRN (11:31)
[2020-12-11 12:05] VITALS: BP 148/80
== END 2020-12-11 12:44 | DRG 522 ==
LOC: EDUNIT# → ED 22:55 → SUPCPDRO 22:55 → MS2 12-08 00:17
PROVIDERS: ADMIT Specialist; ATTEND Specialist
PROC: 0SRS01A Replacement of Left Hip Joint, Femoral Surface with Metal Synthetic Substitute, Uncemented, Open Approach (ICD-10-PCS; principal; 2020-12-08 13:00)
PROC: 0PSJ35Z Reposition Left Radius with External Fixation Device, Percutaneous Approach (ICD-10-PCS; 2020-12-08 13:00)
DX: S72.012A Unspecified intracapsular fracture of left femur, initial encounter for closed fracture (principal); S52.502A Unspecified fracture of the lower end of left radius, initial encounter for closed fracture; S52.602A Unspecified fracture of lower end of left ulna, initial encounter for closed fracture; W01.0XXA Fall on same level from slipping, tripping and stumbling without subsequent striking against object, initial encounter; Y92.018 Other place in single-family (private) house as the place of occurrence of the external cause; Z91.81 History of falling; M81.0 Age-related osteoporosis without current pathological fracture; E87.6 Hypokalemia; R27.0 Ataxia, unspecified; H40.9 Unspecified glaucoma; H35.30 Unspecified macular degeneration; I83.899 Varicose veins of unspecified lower extremity with other complications; M15.0 Primary generalized (osteo)arthritis; K21.9 Gastro-esophageal reflux disease without esophagitis; R41.3 Other amnesia; J30.9 Allergic rhinitis, unspecified; H26.9 Unspecified cataract; R35.0 Frequency of micturition; R35.1 Nocturia; T45.8X6A Underdosing of other primarily systemic and hematological agents, initial encounter; Z91.128 Patient's intentional underdosing of medication regimen for other reason; Z20.822 Contact with and (suspected) exposure to COVID-19; Z79.52 Long term (current) use of systemic steroids; Z79.899 Other long term (current) drug therapy; Z86.19 Personal history of other infectious and parasitic diseases
CPT/HCPCS: 36415; 71045; 73501; 73502; 73700; 80048; 85025; 87631; 96374; 96376; 97162; 97165; 97530; 99284; 99285; A9270; C1713; J0690; J1650; J7120; 0202U

== ENCOUNTER 2021-01-19 07:00 | Outpatient (CLI) | payer MEDICARE, OTHER ==
--- NOTE | 2021-01-19 14:17 | XRAY Report ---
PROCEDURE: Wrist 3 View LT INDICATIONS: COLLES FX OF LEFT RADIUS TECHNIQUE: 3 views of the wrist were acquired. COMPARISON: 12/07/2020 FINDINGS: Bones: There is improved alignment of the transverse, impacted distal radius fracture. The fracture p merritt is blurred. The intra-articular extension is less well seen. There is a small amount of bridging callus present. Nondisplaced ulnar styloid fracture is noted. No suspicious bony lesions. Diffuse d emineralization. Moderate first CMC joint degeneration. Soft tissues: No suspicious soft tissue calcifications. IMPRESSION: 1. Improved alignment and slight healing of the distal radius fracture. 2. Slight healing of the ulnar styloid fracture. Reviewed by: Susan Cassidy MD on 01/19/2021 2:15 PM PDT Approved by: Susan Cassidy MD on 01/19/2021 2:15 PM PDT Station ID: [id number]
--- NOTE | 2021-01-19 17:26 | XRAY Report ---
PROCEDURE: Hip w/Pelvis 2-3V LT INDICATIONS: LEFT HIP ARTHROPLASTY TECHNIQUE: AP pelvis and lateral view of the left hip acquired. COMPARISON: 12/08/2020 FINDINGS: Bones: Patient is status post left total hip arthroplasty, with hardware components in expected posi tions. The hip joint appears congruent. The visualized bony structures appear intact. Soft tissues: Overlying postoperative changes are noted. No suspicious soft tissue densities. IMPRESSION: Stable postoperative changes from left total hip arthroplasty. No evidence for hardware complication. Reviewed by: Jon Petty MD on 01/19/2021 5:25 PM PDT Approved by: Jon Petty MD on 01/19/2021 5:25 PM PDT Station ID: [id number]
== END 2021-01-19 23:59 | disposition home or self-care (01) ==
LOC: DI.N 07:00
PROVIDERS: ATTEND Physician Assistant
DX: S52.532D Colles' fracture of left radius, subsequent encounter for closed fracture with routine healing (principal); Z96.642 Presence of left artificial hip joint

== ENCOUNTER 2021-03-28 15:15 | Outpatient (CLI) | payer MEDICARE, OTHER ==
--- NOTE | 2021-03-28 17:19 | XRAY Report ---
PROCEDURE: Wrist 3 View LT INDICATIONS: COLLES FX OF L RADIUS TECHNIQUE: 2 views of the wrist were acquired. COMPARISON: 12/19/2020 FINDINGS: Bones: The bones are severely demineralized. There is a healing impacted distal radius fracture with unchanged alignment compared to the prior study. Mild bridging callus formation is noted. Nondisplace d ulnar styloid fracture is again noted. Degenerative changes of the first carpometacarpal joint. Soft tissues: No suspicious soft tissue calcifications. IMPRESSION: 1. Healing distal radius fracture with no change in alignment. 2. Osteopenia likely due to disuse. Reviewed by: Fran Sandra on 03/28/2021 5:17 PM PST Approved by: Fran Sandra on 03/28/2021 5:17 PM PST Station ID: [id number]
== END 2021-03-28 23:59 | disposition home or self-care (01) ==
LOC: DI.N 15:15
PROVIDERS: ATTEND Physician Assistant
DX: S52.532D Colles' fracture of left radius, subsequent encounter for closed fracture with routine healing (principal); M85.832 Other specified disorders of bone density and structure, left forearm

== ENCOUNTER 2022-12-11 13:27 | Outpatient (CLI) | payer MEDICARE, OTHER ==
[2022-12-11 18:13] LABS: BASOPHILS # (AUTO) 0.1 10^3/uL (0.0-0.1); BASOPHILS % (AUTO) 0.8 %; EOSINOPHILS # (AUTO) 0.1 10^3/uL (0.0-0.7); EOSINOPHILS % (AUTO) 1.1 %; HCT - HEMATOCRIT 41.3 % (37.0-47.0); HGB - HEMOGLOBIN 13.1 g/dL (12.0-16.0); LYMPHOCYTES # (AUTO) 1.7 10^3/uL (1.5-3.5); LYMPHOCYTES % (AUTO) 23.8 %; MEAN CORPUSCULAR HGB CONC 31.7 g/dL (32.0-36.0); MEAN CORPUSCULAR VOLUME 94.5 fL (81.0-99.0); MONOCYTES # (AUTO) 0.7 10^3/uL (0.0-1.0); MONOCYTES % (AUTO) 9.8 %; NEUTROPHILS # (AUTO) 4.7 10^3/uL (1.5-6.6); NEUTROPHILS % (AUTO) 64.4 %; PLT - PLATELET COUNT 238 10^3/uL (130-450); RED BLOOD COUNT 4.37 10^6/uL (4.20-5.40); RED CELL DISTRIBUTION WIDTH 13.2 % (12.0-15.0); WHITE BLOOD COUNT 7.3 x10^3/uL (4.8-10.8)
[2022-12-11 18:36] LABS: ALBUMIN 4.2 g/dL (3.2-5.5); ALBUMIN/GLOBULIN RATIO 1.3 (1.0-2.2); ALKALINE PHOSPHATASE 75 IU/L (42-121); ALT ALANINE AMINOTRANSFERASE 23 IU/L (10-60); AST ASPARTATE AMINOTRANSFERASE 26 IU/L (10-42); BILIRUBIN,TOTAL 0.3 mg/dL (0.2-1.0); BUN - BLOOD UREA NITROGEN 20 mg/dL (6-20); CALCIUM 9.3 mg/dL (8.5-10.3); CARBON DIOXIDE - CO2 26 mmol/L (21-32); CHLORIDE 104 mmol/L (101-111); CHOL/HDL RATIO 3.4 (<4.4); CHOLESTEROL 200 mg/dL; CREATININE 0.7 mg/dL (0.6-1.3); GFR - MDRD 81 (>89); GLUCOSE 99 mg/dL (74-104); HDL CHOLESTEROL 59 mg/dL; LDL CHOLESTEROL,CALCULATED 81 mg/dL; LDL/HDL RATIO 1.4 (<4.4); POTASSIUM 4.4 mmol/L (3.5-4.5); SODIUM 136 mmol/L (135-145); TOTAL PROTEIN 7.4 g/dL (6.4-8.9); TRIGLYCERIDES 300 mg/dL (48-352); VLDL CHOLESTEROL 60 mg/dL
[2022-12-11 18:46] LABS: THYROID STIMULATING HORMONE 2.42 uIU/mL (0.34-5.60)
== END 2022-12-11 13:28 | disposition home or self-care (01) ==
LOC: LAB.N 13:27
PROVIDERS: ATTEND Physician Assistant Medical
DX: K21.9 Gastro-esophageal reflux disease without esophagitis (principal); Z13.220 Encounter for screening for lipoid disorders; Z13.29 Encounter for screening for other suspected endocrine disorder
CPT/HCPCS: 36415; 80053; 80061; 83721; 84443; 85025

== ENCOUNTER 2023-02-08 12:30 | Outpatient (CLI) | payer MEDICARE, OTHER ==
--- NOTE | 2023-02-08 17:26 | DEXA Report ---
PROCEDURE: Dexa Spine and/or Hip INDICATIONS: POST MENOPAUSAL TECHNIQUE: Dual energy x-ray absorptiometry (DXA) was performed on a [employer]. Regions measur ed are the AP Spine, femoral neck, and if needed forearm. COMPARISON: 07/07/2014, 08/22/2020 FINDINGS: Lumbar Spine: Bone Mineral Density 0.918 g/cm/cm,T score -2.2. Osteopenia Right Femoral Neck: Bone Mineral Density 0.671 g/cm/cm, T score -2.6. Osteoporosis Left Hip: Bone Mineral Density 0.687 g/cm/cm,T score -2.5. Osteoporosis (T score greater or equal to -1.0: NORMAL) (T score from -1.1 to -2.4: OSTEOPENIA) (T score less than or equal to -2.5 to: OSTEOPOROSIS) Impression: By WHO criteria, this patient has osteoporosis. Osteoporosis of the lumbar spine. Osteoporosis of the hip. No significant interval change compared to prior DEXA scan in 2020. Patients with diagnosis of osteoporosis or osteopenia should have regular bone mineral density assess ment. For those eligible for Medicare, routine testing is allowed once every 2 years. Testing frequ ency can be increased for patients who have rapidly progressing disease or for those who are receivin g medical therapy to restore bone mass. Reviewed by: Fran Sandra on 02/08/2023 5:24 PM PDT Approved by: Fran Sandra on 02/08/2023 5:24 PM PDT Station ID: [id number]
== END 2023-02-08 12:31 | disposition home or self-care (01) ==
LOC: DI 12:30
PROVIDERS: ATTEND Physician Assistant Medical
DX: Z78.0 Asymptomatic menopausal state (principal); M81.0 Age-related osteoporosis without current pathological fracture